=== PATIENT | male | born 1945 | race Caucasian/White ===

== ENCOUNTER 2017-09-28 13:43 | Emergency (ER) | payer MEDICARE, OTHER ==
[~2017-09-28] VITALS: Ht 172.7 cm; Wt 84.1 kg
[~2017-09-28 13:43] MED LIST: ATEN-100 PO; BAYE325T3 PO; CETI5TAB2 PO; CRAN425C2 PO; GLIP5 PO; LISI10TA PO; LORTA5 PO; METF1000 PO; MULTCAP14 PO; PROBCAP28; RIVA15 PO; RIVA20 PO; SAW500CA6 PO; SIMV10TA PO
[2017-09-28 13:44] VITALS: BP 190/89; PULSE 73; RESP 15; TEMP 98.1; O2SAT 97
[2017-09-28] MEDS ORDERED: IOHEXOL 350 MG/ML 10 ML VIAL (for RAD DIAG) IVCONTRAST ONE (13:44)
[2017-09-28 14:19] VITALS: BP 196/90
[2017-09-28] MEDS ORDERED: SODIUM CHLORIDE 0.9% FLUSH 10 ML FLUSH IV FLUSH PRN (14:45)
[2017-09-28 15:06] VITALS: O2SAT 98
[2017-09-28 15:15] LABS: AUTOMATED NEUTROPHIL # 9.4 TH/MM3 (1.8-7.7); BASOPHIL % 0.1 % (0.0-2.0); EOSINOPHIL # 0.2 TH/MM3 (0-0.4); EOSINOPHIL % 1.6 % (0.0-4.0); HEMATOCRIT 38.3 % (39.0-51.0); HEMOGLOBIN 12.9 GM/DL (13.0-17.0); LYMPH % 11.8 % (9.0-44.0); LYMPHOCYTE # 1.4 TH/MM3 (1.0-4.8); MEAN CELL VOLUME 93.7 FL (80.0-100.0); MEAN CORPUSCULAR HEMOGLOBIN 31.6 PG (27.0-34.0); MEAN CORPUSCULAR HGB CONC 33.7 % (32.0-36.0); MEAN PLATELET VOLUME 6.7 FL (7.0-11.0); MONO % 8.4 % (0.0-8.0); NEUT % 78.1 % (16.0-70.0); PLATELET COUNT 302 TH/MM3 (150-450); RED BLOOD COUNT 4.09 MIL/MM3 (4.50-5.90); RED CELL DISTRIBUTION WIDTH 13.4 % (11.6-17.2)
[2017-09-28] MEDS ORDERED: LANTUS2P SQ ×2 (15:16)
[2017-09-28] MEDS ORDERED: LISI40TA PO ×2 (15:16)
[2017-09-28] MEDS ORDERED: ALBI1INJ2 SQ ×2 (15:16)
[2017-09-28] MEDS ORDERED: METF1000 PO ×2 (15:16)
[2017-09-28] MEDS ORDERED: CARV6.252 PO ×2 (15:16)
[2017-09-28] MEDS ORDERED: SIMV10TA PO ×2 (15:16)
[2017-09-28 15:21] LABS: PROTHROMBIN TIME - PATIENT 10.1 SEC (9.8-11.6)
[2017-09-28 15:30] LABS: ALBUMIN 4.1 GM/DL (3.4-5.0); ALT (GPT) 26 U/L (12-78); AST (GOT) 22 U/L (15-37); BICARBONATE 30.4 MEQ/L (21.0-32.0); BLOOD UREA NITROGEN 22 MG/DL (7-18); CALCIUM 10.2 MG/DL (8.5-10.1); CHLORIDE 98 MEQ/L (98-107); CREATININE 1.29 MG/DL (0.60-1.30); GLOMERULAR FILTRATION RATE 54 ML/MIN (>89); GLUCOSE,RANDOM 174 MG/DL (74-106); LIPASE 158 U/L (73-393); SODIUM (NA) 135 MEQ/L (136-145)
[2017-09-28] MEDS ORDERED: SODIUM CHLORID 0.9% 500 ML INJ 500 ML IV ONE (15:30)
[2017-09-28] MEDS ORDERED: KETOROLAC TROMETHAMINE 30 MG/ML (IVP) VIAL IV PUSH ONE (15:30)
[2017-09-28] MEDS ORDERED: ONDANSETRON HCL 4 MG/2 ML VIAL IV PUSH ONE (15:30)
[2017-09-28 15:31] LABS: ALKALINE PHOSPHATASE 61 U/L (45-117); TOTAL BILIRUBIN ADULT 0.5 MG/DL (0.2-1.0); TOTAL PROTEIN 8.2 GM/DL (6.4-8.2)
--- NOTE | 2017-09-28 16:05 | PD ---
HPI Chief Complaint: Abdominal Pain Time Seen by Provider: 14:13 Travel History International Travel<30 days: No Contact w/Intl Traveler<30days: No Traveled to known affect area: No History of Present Illness HPI 72 year old male patient presents to the emergency department for right upper and lower quadrant abdominal pain that started last night. Patient states the pain is a steady ache that he rates at a 8/10 but there are intermittent sharp pains. The pain does not radiate anywhere. He denies any nausea, vomiting, diarrhea, chest pain or shortness of breath. He denies any fevers, chills or malaise. He states he bowel movements have been normal and he last had one this morning. It was the patient's usual brown in color. Denies any dark, tarry stools. Patient denies any alcohol abuse, smoking or drug use. Hx of diabetes, prostate CA, HTN, karlos PE and chronic back pain. Patient denies eating any unusual foods or drinks. Patient's only abdominal surgical history is umbilical hernia repair. PFSH Past Medical History Cancer: Yes (LIPOMA, NECK (REMOVED)) Cardiovascular Problems: Yes Chest Pain: Yes (HAD STRESS TEST (? RESULTS)) Diabetes: Yes Patient Takes Glucophage: Yes Diminished Hearing: No Hiatal Hernia: Yes (REPAIR W MESH) Hypertension: Yes Musculoskeletal: No Neurologic: No Reproductive: No Respiratory: Yes (TB) Tetanus Vaccination: < 5 Years ?: Not Past Surgical History Abdominal Surgery: Yes (umbilical hernia) Other Surgery: Yes (lipoma on right neck, cyst on left hand) Social History Alcohol Use: No Tobacco Use: No Substance Use: No Allergies-Medications (Allergen,Severity, Reaction): Coded Allergies: No Known Allergies (Unverified Adverse Reaction, Unknown, 09/28/17) Reported Meds & Prescriptions Reported Meds & Active Scripts Active Flagyl (Metronidazole) 500 Mg Tab 500 Mg PO TID 7 Days Reported Lantus Inj (Insulin Glargine) 1,000 Unit/10 Ml Vial 17 Units SQ HS Lisinopril 40 Mg Tab 40 Mg PO DAILY Simvastatin 10 Mg Tab 10 Mg PO DAILY Carvedilol 6.25 Mg Tab 6.25 Mg PO BID Metformin (Metformin HCl) 1,000 Mg Tab 1,000 Mg PO BIDPC Tanzeum 4-Pack Inj (Albiglutide) 50 Mg Pfpen 50 Mg SQ Q7D Review of Systems Except as stated in HPI: all other systems reviewed are Neg Gastrointestinal: Positive: Abdominal Pain Physical Exam Narrative GENERAL: Well nourish, well developed 72 year old male patient in no acute distress. Nontoxic appearing. SKIN: Focused skin assessment warm/dry. HEAD: Atraumatic. Normocephalic. EYES: Pupils equal and round. No scleral icterus. No injection or drainage. ENT: No nasal bleeding or discharge. Mucous membranes pink and moist. NECK: Trachea midline. No JVD. CARDIOVASCULAR: Regular rate and rhythm. No murmur appreciated. RESPIRATORY: No accessory muscle use. Clear to auscultation. Breath sounds equal bilaterally. GASTROINTESTINAL: Abdomen soft, right upper and lower quadrant tenderness, nondistended. No rebound tenderness. Hepatic and splenic margins not palpable. Umbilical hernia repair noted. MUSCULOSKELETAL: No obvious deformities. No clubbing. No cyanosis. No edema. NEUROLOGICAL: Awake and alert. No obvious cranial nerve deficits. Motor grossly within normal limits. Normal speech. PSYCHIATRIC: Appropriate mood and affect; insight and judgment normal. Data Data Last Documented VS Vital Signs Date Time Temp Pulse Resp B/P (MAP) Pulse Ox O2 Delivery O2 Flow Rate FiO2 09/28/17 16:46 66 17 207/90 (129) 99 Room Air 09/28/17 13:44 98.1 Orders Orders Complete Blood Count With Diff (09/28/17 14:39) Comprehensive Metabolic Panel (09/28/17 14:39) Lipase (09/28/17 14:39) Prothrombin Time / Inr (Pt) (09/28/17 14:39) Act Partial Throm Time (Ptt) (09/28/17 14:39) Urinalysis - C+S If Indicated (09/28/17 14:39) Ct Abd/Pel W Iv Contrast(Rout) (09/28/17 14:39) Iv Access Insert/Monitor (09/28/17 14:39) Ecg Monitoring (09/28/17 14:39) Oximetry (09/28/17 14:39) Sodium Chloride 0.9% Flush (Ns Flush) (09/28/17 14:45) Electrocardiogram (09/28/17 14:39) Sodium Chlorid 0.9% 500 Ml Inj (Ns 500 M (09/28/17 15:30) Ondansetron Inj (Zofran Inj) (09/28/17 15:30) Ketorolac Inj (Toradol Inj) (09/28/17 15:30) Iohexol 350 Inj (Omnipaque 350 Inj) (09/28/17 13:44) Ed Discharge Order (09/28/17 17:32) Labs Laboratory Tests Test 09/28/17 14:35 09/28/17 16:40 White Blood Count 12.0 TH/MM3 Red Blood Count 4.09 MIL/MM3 Hemoglobin 12.9 GM/DL Hematocrit 38.3 % Mean Corpuscular Volume 93.7 FL Mean Corpuscular Hemoglobin 31.6 PG Mean Corpuscular Hemoglobin Concent 33.7 % Red Cell Distribution Width 13.4 % Platelet Count 302 TH/MM3 Mean Platelet Volume 6.7 FL Neutrophils (%) (Auto) 78.1 % Lymphocytes (%) (Auto) 11.8 % Monocytes (%) (Auto) 8.4 % Eosinophils (%) (Auto) 1.6 % Basophils (%) (Auto) 0.1 % Neutrophils # (Auto) 9.4 TH/MM3 Lymphocytes # (Auto) 1.4 TH/MM3 Monocytes # (Auto) 1.0 TH/MM3 Eosinophils # (Auto) 0.2 TH/MM3 Basophils # (Auto) 0.0 TH/MM3 CBC Comment DIFF FINAL Differential Comment Prothrombin Time 10.1 SEC Prothromb Time International Ratio 1.0 RATIO Activated Partial Thromboplast Time 25.5 SEC Blood Urea Nitrogen 22 MG/DL Creatinine 1.29 MG/DL Random Glucose 174 MG/DL Total Protein 8.2 GM/DL Albumin 4.1 GM/DL Calcium Level 10.2 MG/DL Alkaline Phosphatase 61 U/L Aspartate Amino Transf (AST/SGOT) 22 U/L Alanine Aminotransferase (ALT/SGPT) 26 U/L Total Bilirubin 0.5 MG/DL Sodium Level 135 MEQ/L Potassium Level 3.6 MEQ/L Chloride Level 98 MEQ/L Carbon Dioxide Level 30.4 MEQ/L Anion Gap 7 MEQ/L Estimat Glomerular Filtration Rate 54 ML/MIN Lipase 158 U/L Urine Color YELLOW Urine Turbidity CLEAR Urine pH 8.0 Urine Specific [place] 1.038 Urine Protein TRACE mg/dL Urine Glucose (UA) 300 mg/dL Urine Ketones 80 mg/dL Urine Occult Blood NEG Urine Nitrite NEG Urine Bilirubin NEG Urine Urobilinogen LESS THAN 2.0 MG/DL Urine Leukocyte Esterase NEG Urine RBC LESS THAN 1 /hpf Urine WBC 1 /hpf Microscopic Urinalysis Comment CULT NOT INDICATED MDM Medical Decision Making Medical Screen Exam Complete: Yes Emergency Medical Condition: Yes Differential Diagnosis Differential diagnoses include but not limited to cholecystitis, appendicitis, gastritis, pancreatitis Narrative Course Patient placed on monitor, IV obtained, blood work sent to the lab. CBC, CMP, lipase, PT INR, UA ordered and pending. Abdominal CT ordered and pending. 500 mL normal saline bolus IV, 4 mg Zofran, 30 mg Toradol IV given. CBC shows mild leukocytosis of 12 CMP shows glucose 174, calcium 10.2, otherwise no acute abnormalities. PT/INR shows no acute abnormalities. UA shows glucose and ketones otherwise no acute abnormality. Abdominal CT shows right lower lung scar and/or infiltrates and numerous diverticuli in the colon. Patient has no shortness of breath or cough or fever. My attending, Dr Tinoco and I reviewed the CT and saw nonspecific inflammatory changes in the right lower quadrant. Patient will be given antibiotic per Dr Tinoco's suggestion. Based on patient's symptoms, clinical presentation, lab results, radiological results, vital sign review and physical exam it is not necessary to admit the patient to the hospital or keep the patient in the emergency department for further evaluation. Patient will be discharged home with prescription for Flagyl. Diagnosis Primary Impression: Abdominal pain Qualified Codes: R10.9 - Unspecified abdominal pain Referrals: Primary Care Physician Patient Instructions: Abdominal Pain (ED), General Instructions Additional Instructions: Please return to emergency department if your symptoms return or worsen. Follow up with your primary care provider. Take medications as prescribed. Med/Other Pt SpecificInfo: Prescription(s) given Scripts Metronidazole (Flagyl) 500 Mg Tab 500 MG PO TID for Infection for 7 Days, TAB 0 Refills Prov: LuanneHeather 09/28/17 Disposition: DISCHARGE HOME Condition: Stable Heather Stroud Sep 28, 2017 16:05
--- NOTE | 2017-09-28 16:20 | RADRPT ---
EXAM DATE/TIME: 09/28/2017 16:00 [facility] COMPARISON: No previous studies available for comparison. INDICATIONS : Patient complains of low abdominal pain. IV CONTRAST: 94 cc Omnipaque 350 (iohexol) IV ORAL CONTRAST: No oral contrast ingested. RADIATION DOSE: 13.04 CTDIvol (mGy) MEDICAL HISTORY : Cardiovascular disease. Diabetes mellitus type 1. neck cancer SURGICAL HISTORY : hiatal hernia repair ENCOUNTER: Initial ACUITY: 1 day PAIN SCALE: 5/10 LOCATION: lower quadrant TECHNIQUE: Volumetric scanning of the abdomen and pelvis was performed. Using automated exposure control and ad justment of the mA and/or kV according to patient size, radiation dose was kept as low as reasonably achievable to obtain optimal diagnostic quality images. DICOM format image data is available electro nically for review and comparison. FINDINGS: CT Abdomen: The liver, spleen, pancreas, kidneys, adrenals are unremarkable. There is no evidence for any appreciable pathological adenopathy, free fluid, or bowel obstruction. Right lung base anterola teral opacity is present measures almost 1.9 cm in size may be infiltrate and/or scar. CT pelvis: There is no evidence for mass, abscess formation, or any significant adenopathy within the pelvis. The prostate gland is inhomogeneous and measures 4.2 x 4.8 cm in AP and transverse diameters and nonspecific. There are numerous diverticuli mainly in the sigmoid colon without definite signs o f diverticulitis. CONCLUSION: Right lower lung scar and/or infiltrate and numerous diverticuli in the colon. Raza Yeh MD on September 28, 2017 at 16:12 Board Certified Radiologist. This report was verified electronically.
[2017-09-28 16:46] VITALS: BP 207/90; PULSE 66; RESP 17; O2SAT 99
[2017-09-28 17:20] LABS: BILIRUBIN, URINE NEG (NEG); BLOOD, URINE NEG (NEG); GLUCOSE,URINE 300 mg/dL (NEG); KETONE, URINE 80 mg/dL (NEG); NITRITE,URINE NEG (NEG); URINE COLOR YELLOW (YELLW/STRAW); URINE LEUKOCYTE ESTERASE NEG (NEG)
[2017-09-28] MEDS ORDERED: METR-1 PO (17:32)
--- NOTE | 2017-09-29 12:32 | EKG ---
Date Performed: 09/28/2017 Time Performed: 14:14:51 PTAGE: 72 years EKG: Sinus rhythm INFERIOR MYOCARDIAL INFARCTION ABNORMAL ECG PREVIOUS TRACING : 10/30/2013 22.40 DOCTOR: David Wilson Interpretating Date/Time 09/29/2017 12:31:40
== END 2017-09-28 19:05 | disposition home or self-care (01) ==
LOC: NEPE 13:43
DX: R10.31 Right lower quadrant pain (principal); R10.11 Right upper quadrant pain; I10 Essential (primary) hypertension; E11.9 Type 2 diabetes mellitus without complications; M54.9 Dorsalgia, unspecified; R94.31 Abnormal electrocardiogram [ECG] [EKG]
CPT/HCPCS: 74177; 80053; 81001; 83690; 85025; 85610; 85730; 93005; 96361; 96374; 96375; 99285; J1885; J2405; J7040; Q9967

== ENCOUNTER 2017-10-01 11:12 | Inpatient (IN) | payer MEDICARE, OTHER ==
[~2017-10-01] VITALS: Ht 172.7 cm; Wt 83.5 kg
[~2017-10-01 11:12] MED LIST changes: +ALBI1INJ2 SQ; +CARV6.252 PO; +LANTUS2P SQ; +LISI40TA PO; +METR-1 PO
[2017-10-01 11:13] VITALS: BP 128/68; PULSE 92; RESP 18; TEMP 98; O2SAT 95
[2017-10-01] MEDS ORDERED: HYDR12.57 PO ×2 (11:39)
[2017-10-01] MEDS ORDERED: LIDOCAINE HCL 1% PF 5 ML SYRINGE OTHER ONE (12:00)
[2017-10-01] MEDS ORDERED: SUCCINYLCHOLINE CHLORIDE 100 MG/5 ML SYRINGE IV PUSH ONE (12:00)
[2017-10-01] MEDS ORDERED: MORPHINE SULFATE 2 MG/ML INJ IV PUSH ONE (12:00)
[2017-10-01] MEDS ORDERED: PROPOFOL 200 MG/20 ML AMP IV ONE (12:00)
[2017-10-01] MEDS ORDERED: PHENYLEPH/NS 1000 MCG/10 ML SYR IV ONE (12:00)
[2017-10-01] MEDS ORDERED: ONDANSETRON HCL 4 MG/2 ML VIAL IV ONE (12:00)
[2017-10-01] MEDS ORDERED: ROCURONIUM INJ 50 MG/5 ML VIAL IV ONE (12:00)
[2017-10-01] MEDS ORDERED: LACTATED RINGER'S 1000 ML INJ 1,000 ML IV ONE (12:00)
[2017-10-01] MEDS ORDERED: DEXAMETHASONE SOD PHOS 4 MG/ML VIAL IV ONE (12:00)
[2017-10-01] MEDS ORDERED: ONDANSETRON HCL 4 MG/2 ML VIAL IVP ONE (12:00)
--- NOTE | 2017-10-01 12:26 | RADRPT ---
EXAM DATE/TIME: 10/01/2017 12:01 [facility] COMPARISON: No previous studies available for comparison. INDICATIONS : Lower chest pain. MEDICAL HISTORY : Cardiovascular disease. Diabetes mellitus type I. neck cancer SURGICAL HISTORY : hiatal hernia ENCOUNTER: Initial ACUITY: 1 day PAIN SCORE: 4/10 LOCATION: Bilateral chest FINDINGS: A single view of the chest demonstrates the lungs to be symmetrically aerated without evidence of mas s, infiltrate or effusion. The cardiomediastinal contours are unremarkable. Osseous structures are intact. CONCLUSION: No acute disease. Jeremiah Celeste MD FACR on October 01, 2017 at 12:23 Board Certified Radiologist. This report was verified electronically.
[2017-10-01 12:27] LABS: AUTOMATED NEUTROPHIL # 6.4 TH/MM3 (1.8-7.7); EOSINOPHIL # 0.3 TH/MM3 (0-0.4); EOSINOPHIL % 4.6 % (0.0-4.0); HEMATOCRIT 37.3 % (39.0-51.0); HEMOGLOBIN 12.5 GM/DL (13.0-17.0); LYMPH % 5.6 % (9.0-44.0); LYMPHOCYTE # 0.4 TH/MM3 (1.0-4.8); MEAN CELL VOLUME 93.9 FL (80.0-100.0); MEAN CORPUSCULAR HEMOGLOBIN 31.4 PG (27.0-34.0); MEAN CORPUSCULAR HGB CONC 33.5 % (32.0-36.0); MEAN PLATELET VOLUME 7.2 FL (7.0-11.0); MONO % 4.8 % (0.0-8.0); MONOCYTE # 0.4 TH/MM3 (0-0.9); PLATELET COUNT 275 TH/MM3 (150-450); RED BLOOD COUNT 3.98 MIL/MM3 (4.50-5.90); RED CELL DISTRIBUTION WIDTH 13.9 % (11.6-17.2); WHITE BLOOD COUNT 7.5 TH/MM3 (4.0-11.0)
--- NOTE | 2017-10-01 12:28 | PD ---
HPI Chief Complaint: Abdominal Pain Time Seen by Provider: 11:38 Travel History International Travel<30 days: No Contact w/Intl Traveler<30days: No Traveled to known affect area: No History of Present Illness HPI 72-year-old male that presents to the ED for evaluation of abdominal pain. Per patient is mainly on the right side. Radiates to the lower abdomen like a band. Sometimes to the back of the right side. Patient has no history of recent surgeries but was seen here on Wednesday for evaluation of the same. Patient had a full workup and was diagnosed with diverticulitis. He was found/ body symptoms have not improved. Per patient he still continues to have pain. Per patient the pain is 7 out of 10. Coughing makes it worse. He denies any runny nose or congestion. He states that his been compliant with the medication but has had minimal relief. His been taking Tylenol for the pain with minimal relief. He is having some diarrhea but no blood or dark stools. No fevers chills or sweats. No sick contacts. No new foods. No recent travel. No allergies to medication. He states he has not vomited. His appetite has been diminished. He denies any urinary symptoms. He has not seen his doctor since been seen at this ED. PFSH Past Medical History Cancer: Yes (LIPOMA, NECK (REMOVED)) Cardiovascular Problems: Yes Chest Pain: Yes (HAD STRESS TEST (? RESULTS)) Diabetes: Yes Patient Takes Glucophage: No Diminished Hearing: No Hiatal Hernia: Yes (REPAIR W MESH) Hypertension: Yes Musculoskeletal: No Neurologic: No Reproductive: No Respiratory: Yes (TB) Past Surgical History Abdominal Surgery: Yes (umbilical hernia) Other Surgery: Yes (lipoma on right neck, cyst on left hand) Social History Alcohol Use: No Tobacco Use: No Substance Use: No Allergies-Medications (Allergen,Severity, Reaction): Coded Allergies: No Known Allergies (Unverified Allergy, Unknown, 10/01/17) Reported Meds & Prescriptions Reported Meds & Active Scripts Active Flagyl (Metronidazole) 500 Mg Tab 500 Mg PO TID 7 Days Reported Hydrochlorothiazide 12.5 Mg Cap 12.5 Mg PO BID Lantus Inj (Insulin Glargine) 1,000 Unit/10 Ml Vial 17 Units SQ HS Lisinopril 40 Mg Tab 40 Mg PO DAILY Simvastatin 10 Mg Tab 10 Mg PO DAILY Carvedilol 6.25 Mg Tab 6.25 Mg PO BID Metformin (Metformin HCl) 1,000 Mg Tab 1,000 Mg PO BIDPC Tanzeum 4-Pack Inj (Albiglutide) 50 Mg Pfpen 50 Mg SQ Q7D Review of Systems Except as stated in HPI: all other systems reviewed are Neg Physical Exam Narrative GENERAL: SKIN: Warm and dry. HEAD: Atraumatic. Normocephalic. EYES: Pupils equal and round. No scleral icterus. No injection or drainage. ENT: No nasal bleeding or discharge. Mucous membranes pink and moist. Tongue is midline. No uvula deviation. NECK: Trachea midline. No JVD. CARDIOVASCULAR: Regular rate and rhythm. No murmurs, S3, S4. RESPIRATORY: No accessory muscle use. Clear to auscultation. Breath sounds equal bilaterally. GASTROINTESTINAL: Abdomen soft, tender to palpation the right upper and right lower quadrant of the abdomen especially with deep palpation, nondistended. Hepatic and splenic margins not palpable. MUSCULOSKELETAL: Extremities without clubbing, cyanosis, or edema. No obvious deformities. Full range of motion of the upper and lower extremities bilaterally. 2+ pulses bilaterally. NEUROLOGICAL: Awake and alert. No obvious cranial nerve deficits. Motor grossly within normal limits. Five out of 5 muscle strength in the arms and legs. Normal speech. PSYCHIATRIC: Appropriate mood and affect; insight and judgment normal. Data Data Last Documented VS Vital Signs Date Time Temp Pulse Resp B/P (MAP) Pulse Ox O2 Delivery O2 Flow Rate FiO2 10/01/17 14:16 85 17 143/68 (93) 97 Room Air 10/01/17 11:13 98.0 Orders Orders Complete Blood Count With Diff (10/01/17 11:22) Comprehensive Metabolic Panel (10/01/17 11:22) Lipase (10/01/17 11:22) Lactic Acid (10/01/17 11:22) Urinalysis - C+S If Indicated (10/01/17 11:22) Iv Access Insert/Monitor (10/01/17 11:22) Ct Abd/Pel W Iv Contrast(Rout) (10/01/17 11:48) Ondansetron Inj (Zofran Inj) (10/01/17 12:00) Chest, Single Ap (10/01/17 11:48) Morphine Inj (Morphine Inj) (10/01/17 12:00) Stool Ova And Parasite Screen (10/01/17 11:50) Enteric Path (Stool) (10/01/17 11:50) Sodium Chlor 0.9% 1000 Ml Inj (Ns 1000 M (10/01/17 13:00) Urine Culture (10/01/17 12:05) Iohexol 350 Inj (Omnipaque 350 Inj) (10/01/17 13:18) Piperacil-Tazo 3.375 Gm Premix (Zosyn 3. (10/01/17 14:00) Coag Profile (10/01/17 14:40) Blood Glucose (10/01/17 14:41) Admit Order (Ed Use Only) (10/01/17 15:01) Labs Laboratory Tests Test 10/01/17 11:50 10/01/17 12:05 10/01/17 12:56 White Blood Count 7.5 TH/MM3 Red Blood Count 3.98 MIL/MM3 Hemoglobin 12.5 GM/DL Hematocrit 37.3 % Mean Corpuscular Volume 93.9 FL Mean Corpuscular Hemoglobin 31.4 PG Mean Corpuscular Hemoglobin Concent 33.5 % Red Cell Distribution Width 13.9 % Platelet Count 275 TH/MM3 Mean Platelet Volume 7.2 FL Neutrophils (%) (Auto) 85.0 % Lymphocytes (%) (Auto) 5.6 % Monocytes (%) (Auto) 4.8 % Eosinophils (%) (Auto) 4.6 % Basophils (%) (Auto) 0.0 % Neutrophils # (Auto) 6.4 TH/MM3 Lymphocytes # (Auto) 0.4 TH/MM3 Monocytes # (Auto) 0.4 TH/MM3 Eosinophils # (Auto) 0.3 TH/MM3 Basophils # (Auto) 0.0 TH/MM3 CBC Comment AUTO DIFF Differential Total Cells Counted 100 Neutrophils % (Manual) 62 % Band Neutrophils % 20 % Lymphocytes % 7 % Monocytes % 6 % Eosinophils % 2 % Neutrophils # (Manual) 6.4 TH/MM3 Metamyelocytes 3 % Differential Comment FINAL DIFF MANUAL Toxic Granulation 1+ Platelet Estimate NORMAL Platelet Morphology Comment NORMAL Red Cell Morphology Comment NORMAL Blood Urea Nitrogen 25 MG/DL Creatinine 1.55 MG/DL Random Glucose 200 MG/DL Total Protein 7.0 GM/DL Albumin 2.7 GM/DL Calcium Level 9.1 MG/DL Alkaline Phosphatase 39 U/L Aspartate Amino Transf (AST/SGOT) 6 U/L Alanine Aminotransferase (ALT/SGPT) 16 U/L Total Bilirubin 0.5 MG/DL Sodium Level 132 MEQ/L Potassium Level 3.8 MEQ/L Chloride Level 96 MEQ/L Carbon Dioxide Level 28.2 MEQ/L Anion Gap 8 MEQ/L Estimat Glomerular Filtration Rate 44 ML/MIN Lactic Acid Level 1.7 mmol/L Lipase 99 U/L Urine Color LIGHT-RED Urine Turbidity HAZY Urine pH 5.5 Urine Specific [place] 1.017 Urine Protein 100 mg/dL Urine Glucose (UA) NEG mg/dL Urine Ketones TRACE mg/dL Urine Occult Blood TRACE Urine Nitrite NEG Urine Bilirubin NEG Urine Urobilinogen LESS THAN 2.0 MG/DL Urine Leukocyte Esterase TRACE Urine RBC 2 /hpf Urine WBC 19 /hpf Urine Squamous Epithelial Cells 1 /hpf Urine Amorphous Sediment OCC Urine Bacteria RARE /hpf Urine Hyaline Casts 3 /lpf Urine Granular Casts 4 /lpf Urine Mucus FEW /lpf Microscopic Urinalysis Comment CULTURE INDICATED Prothrombin Time 11.0 SEC Prothromb Time International Ratio 1.1 RATIO Activated Partial Thromboplast Time 30.3 SEC MDM Medical Decision Making Medical Screen Exam Complete: Yes Emergency Medical Condition: Yes Medical Record Reviewed: Yes Interpretation(s) CBC & BMP Diagram 10/01/17 11:50 Total Protein 7.0 #, Albumin 2.7 L, Calcium Level 9.1, Alkaline Phosphatase 39 L , Aspartate Amino Transf (AST/SGOT) 6 L, Alanine Aminotransferase (ALT/SGPT) 16 , Total Bilirubin 0.5 Last Impressions Chest X-Ray 10/01/17 1148 Signed Impressions: Service Date/Time: Sunday, October 01, 2017 12:01 - CONCLUSION: No acute disease. Jeremiah Celeste MD FACR Abdomen/Pelvis CT 10/01/17 1148 Signed Impressions: Service Date/Time: Sunday, October 01, 2017 13:10 - CONCLUSION: Marked inflammatory changes right lower quadrant with small amount of free air. No defined abscess. Considerations include both diverticulitis and appendicitis. I would favor appendicitis., Series 601 image 51 Jeremiah Celeste MD FACR lipase WNL UA shows possible UTI Differential Diagnosis Abdominal pain versus diverticulitis versus gastroenteritis versus acute abdomen versus pancreatitis versus obstruction Narrative Course 72-year-old male that presents to the ED for violation of abdominal pain. Patient was properly examined and was found to have signs and symptoms consistent with appears to be abdominal pain. Possible diverticulitis. Patient he had a lumbosacral found but CT report did not found diverticulitis per se but he had some inflammation in the area where he had the symptoms. Questionable whether something else might be going on. Patient still very tender on exam. Labs and imaging were ordered. Labs and imaging chem positive for what appears to be possible appendicitis versus perforated diverticula. Case discussed in my attending Dr. Danielson who was made aware of findings and spoke with Dr. Renteria in person who wanted to have the patient admitted to medicine and patient to go to the or after he spoke with the patient for need for surgery for further evaluation. Case was discussed with the residents who agree to admission Diagnosis Primary Impression: Appendicitis with perforation Admitting Information Admitting Physician Requests: it Richard Cardoza Oct 01, 2017 12:28
[2017-10-01 12:50] LABS: ALBUMIN 2.7 GM/DL (3.4-5.0); ALKALINE PHOSPHATASE 39 U/L (45-117); ALT (GPT) 16 U/L (12-78); AST (GOT) 6 U/L (15-37); BICARBONATE 28.2 MEQ/L (21.0-32.0); BLOOD UREA NITROGEN 25 MG/DL (7-18); CALCIUM 9.1 MG/DL (8.5-10.1); CHLORIDE 96 MEQ/L (98-107); CREATININE 1.55 MG/DL (0.60-1.30); GLOMERULAR FILTRATION RATE 44 ML/MIN (>89); GLUCOSE,RANDOM 200 MG/DL (74-106); LIPASE 99 U/L (73-393); SODIUM (NA) 132 MEQ/L (136-145); TOTAL BILIRUBIN ADULT 0.5 MG/DL (0.2-1.0)
[2017-10-01 12:51] LABS: AMORPHOUS SEDIMENT, URINE OCC; BACTERIA, URINE RARE /hpf; BILIRUBIN, URINE NEG (NEG); BLOOD, URINE TRACE (NEG); GLUCOSE,URINE NEG (NEG); HYALINE CAST, URINE 3 /lpf (RARE); KETONE, URINE TRACE mg/dL (NEG); MUCUS URINE FEW /lpf (OCC); NITRITE,URINE NEG (NEG); PH, URINE 5.5 (5.0-8.5); SQUAMOUS EPITHELIAL CELL URINE 1 /hpf (0-5); URINE LEUKOCYTE ESTERASE TRACE (NEG)
[2017-10-01 12:52] LABS: URINE COLOR LIGHT-RED (YELLW/STRAW)
[2017-10-01] MEDS ORDERED: SODIUM CHLOR 0.9% 1000 ML INJ 1,000 ML IV ONE (13:00)
[2017-10-01 13:04] LABS: BANDS 20 % (0-6); LYMPHOCYTES 7 % (9-44); METAMYELOCYTES 3 % (0-1); MONOCYTES 6 % (0-8); NEUTROPHIL # MANUAL DIFF 6.4 TH/MM3 (1.8-7.7); POLYS (SEG NEUTROPHILS) 62 % (16-70)
[2017-10-01 13:05] LABS: TOXIC GRANULATION 1+ (NORMAL)
[2017-10-01] MEDS ORDERED: IOHEXOL 350 MG/ML 10 ML VIAL (for RAD DIAG) IVCONTRAST ONE (13:18)
--- NOTE | 2017-10-01 13:52 | RADRPT ---
EXAM DATE/TIME: 10/01/2017 13:10 [facility] COMPARISON: CT ABDOMEN & PELVIS W CONTRAST, September 28, 2017, 16:00. INDICATIONS : Lower abdominal pain. IV CONTRAST: 92 cc Omnipaque 350 (iohexol) IV ORAL CONTRAST: No oral contrast ingested. RADIATION DOSE: 10.58 CTDIvol (mGy) MEDICAL HISTORY : Hypertension. Diabetes mellitus type 2. Hernia, umbilical.Neck cancer. SURGICAL HISTORY : Hiatal hernia repair. ENCOUNTER: Initial ACUITY: 1 day PAIN SCALE: 4/10 LOCATION: lower abdomen TECHNIQUE: Volumetric scanning of the abdomen and pelvis was performed. Using automated exposure control and ad justment of the mA and/or kV according to patient size, radiation dose was kept as low as reasonably achievable to obtain optimal diagnostic quality images. DICOM format image data is available electro nically for review and comparison. FINDINGS: LOWER LUNGS Minimal bibasilar peribronchial thickening. The liver, spleen, pancreas and adrenals are unremarkable Symmetrical renal function without stone No ascites or adenopathy The marked inflammatory changes in the right lower quadrant associated with the descending colon and cecum. \ Considerations would include both appendicitis and diverticulitis. . Small amount of free air is present adjacent to the colon. In the pelvis extensive diverticuli are seen without inflammatory changes. CONCLUSION: Marked inflammatory changes right lower quadrant with small amount of free air. No d efined abscess. Considerations include both diverticulitis and appendicitis. I would favor appendicitis., Series 601 image 51 Jeremiah Celeste MD FACR on October 01, 2017 at 13:44 Board Certified Radiologist. This report was verified electronically.
[2017-10-01] MEDS ORDERED: PIPERACIL-TAZO 3.375 GM PREMIX 50 ML IV ONE (14:00)
--- NOTE | 2017-10-01 14:09 | PD ---
Physical Exam Narrative I, Dr. Danielson, have reviewed the advance practice practitioner's documentation and am in agreement, met with the patient face to face, made the diagnosis, and the medical decision making was done by me. *My assessment and Findings: Diverticulitis vs. appendicitis vs. nephrolithiasis 72yo M with PMH of HTN, DM presents to the ED with c/o right lower abdominal pain for 1 week. Pt was seen here on 09/28/16 but pain has gotten worst. Associated with nausea, nonbloody diarrhea and chills. +Decreased appetite. Last meal 7:30am. Denies any fever, chest pain, sob. CXR negative. CT a/p showed marked inflammatory changes right lower quadrant with small amount of free air. No defined abscess. Considerations both diverticulitis and appendicitis. Radiologist would favor appendicitis. Labs reviewed, no leukocytosis. Bandemia elevated at 20%. Lactic acid normal at 1.7. Glucose elevated at 200 but no increased anion gap. BUN/creatinine mildly increased at 25/1.55. LFTs low. UA showed wbc 19. Culture indicated. Pt has been covered with zosyn IV and NS IVF. Pt reevaluated at bedside after morphine and pain has improved. Still very tender in RLQ > RUQ. +Guarding. Discussed with general surgeon Dr. Renteria who came to evaluate the patient in the ED. He wanted the patient admitted to medicine and will take the pt to the OR now. Discussed with resident physicians and pt accepted to their service. Data Data Last Documented VS Vital Signs Date Time Temp Pulse Resp B/P (MAP) Pulse Ox O2 Delivery O2 Flow Rate FiO2 10/01/17 14:16 85 17 143/68 (93) 97 Room Air 10/01/17 11:13 98.0 Orders Orders Complete Blood Count With Diff (10/01/17 11:22) Comprehensive Metabolic Panel (10/01/17 11:22) Lipase (10/01/17 11:22) Lactic Acid (10/01/17 11:22) Urinalysis - C+S If Indicated (10/01/17 11:22) Iv Access Insert/Monitor (10/01/17 11:22) Ct Abd/Pel W Iv Contrast(Rout) (10/01/17 11:48) Ondansetron Inj (Zofran Inj) (10/01/17 12:00) Chest, Single Ap (10/01/17 11:48) Morphine Inj (Morphine Inj) (10/01/17 12:00) Stool Ova And Parasite Screen (10/01/17 11:50) Enteric Path (Stool) (10/01/17 11:50) Sodium Chlor 0.9% 1000 Ml Inj (Ns 1000 M (10/01/17 13:00) Urine Culture (10/01/17 12:05) Iohexol 350 Inj (Omnipaque 350 Inj) (10/01/17 13:18) Piperacil-Tazo 3.375 Gm Premix (Zosyn 3. (10/01/17 14:00) Coag Profile (10/01/17 14:40) Blood Glucose (10/01/17 14:41) Admit Order (Ed Use Only) (10/01/17 15:01) Labs Laboratory Tests Test 10/01/17 11:50 10/01/17 12:05 10/01/17 12:56 White Blood Count 7.5 TH/MM3 Red Blood Count 3.98 MIL/MM3 Hemoglobin 12.5 GM/DL Hematocrit 37.3 % Mean Corpuscular Volume 93.9 FL Mean Corpuscular Hemoglobin 31.4 PG Mean Corpuscular Hemoglobin Concent 33.5 % Red Cell Distribution Width 13.9 % Platelet Count 275 TH/MM3 Mean Platelet Volume 7.2 FL Neutrophils (%) (Auto) 85.0 % Lymphocytes (%) (Auto) 5.6 % Monocytes (%) (Auto) 4.8 % Eosinophils (%) (Auto) 4.6 % Basophils (%) (Auto) 0.0 % Neutrophils # (Auto) 6.4 TH/MM3 Lymphocytes # (Auto) 0.4 TH/MM3 Monocytes # (Auto) 0.4 TH/MM3 Eosinophils # (Auto) 0.3 TH/MM3 Basophils # (Auto) 0.0 TH/MM3 CBC Comment AUTO DIFF Differential Total Cells Counted 100 Neutrophils % (Manual) 62 % Band Neutrophils % 20 % Lymphocytes % 7 % Monocytes % 6 % Eosinophils % 2 % Neutrophils # (Manual) 6.4 TH/MM3 Metamyelocytes 3 % Differential Comment FINAL DIFF MANUAL Toxic Granulation 1+ Platelet Estimate NORMAL Platelet Morphology Comment NORMAL Red Cell Morphology Comment NORMAL Blood Urea Nitrogen 25 MG/DL Creatinine 1.55 MG/DL Random Glucose 200 MG/DL Total Protein 7.0 GM/DL Albumin 2.7 GM/DL Calcium Level 9.1 MG/DL Alkaline Phosphatase 39 U/L Aspartate Amino Transf (AST/SGOT) 6 U/L Alanine Aminotransferase (ALT/SGPT) 16 U/L Total Bilirubin 0.5 MG/DL Sodium Level 132 MEQ/L Potassium Level 3.8 MEQ/L Chloride Level 96 MEQ/L Carbon Dioxide Level 28.2 MEQ/L Anion Gap 8 MEQ/L Estimat Glomerular Filtration Rate 44 ML/MIN Lactic Acid Level 1.7 mmol/L Lipase 99 U/L Urine Color LIGHT-RED Urine Turbidity HAZY Urine pH 5.5 Urine Specific [place] 1.017 Urine Protein 100 mg/dL Urine Glucose (UA) NEG mg/dL Urine Ketones TRACE mg/dL Urine Occult Blood TRACE Urine Nitrite NEG Urine Bilirubin NEG Urine Urobilinogen LESS THAN 2.0 MG/DL Urine Leukocyte Esterase TRACE Urine RBC 2 /hpf Urine WBC 19 /hpf Urine Squamous Epithelial Cells 1 /hpf Urine Amorphous Sediment OCC Urine Bacteria RARE /hpf Urine Hyaline Casts 3 /lpf Urine Granular Casts 4 /lpf Urine Mucus FEW /lpf Microscopic Urinalysis Comment CULTURE INDICATED Prothrombin Time 11.0 SEC Prothromb Time International Ratio 1.1 RATIO Activated Partial Thromboplast Time 30.3 SEC [facility] Supervised Visit with CHIN: Yes Diagnosis Primary Impression: Appendicitis with perforation Admitting Information Admitting Physician Requests: it Estephania Danielson DO Oct 01, 2017 14:09
[2017-10-01 14:16] VITALS: BP 143/68; PULSE 85; RESP 17; O2SAT 97
--- NOTE | 2017-10-01 15:15 | HHI.HP ---
HPI Service Family Medicine Primary Care Physician No Primary Care Physician Admission Diagnosis Acute appendicitis Diagnoses: Chief Complaint: RLQ abdominal pain since Wednesday. International Travel<30 Days: No Contact w/Intl Traveler<30days: No Known Affected Area: No History of Present Illness History limited due to time (patient being rushed emergently to OR for surgery) . History obtained from patient, ER physician, and chart review. Briefly, Mr. Molina is a 72 yo M with h/o DM, hyperlipidemia, hypertension, and PE in 2013 who presented to the ED with acute abdominal pain since Wednesday that has since worsened which is his main reason for presentation today. He states that the pain is diffuse over the right side of his abdomen but is locally exquisitely tender in his RLQ. He also reports that he has R shoulder pain that appeared around the same time of his abdominal pain. He did not have any fever or vomiting, but reported some nausea immediately prior to ED arrival. Review of Systems ROS Limitations: Clinical Condition (patient being rushed to surgery emergently.) Constitutional: DENIES: Diaphoretic episodes, Fatigue, Fever, Weight gain, Weight loss, Chills, Dizziness, Change in appetite, Night Sweats Respiratory: DENIES: Wheezing, Shortness of breath Cardiovascular: DENIES: Chest pain, Palpitations Gastrointestinal: COMPLAINS OF: Abdominal pain, Nausea Musculoskeletal: COMPLAINS OF: Muscle aches (R shoulder pain starting around the time of abdominal pain.) Past Family Social History Past Medical History Past Medical History Hypertension, DM Type II, Osteoarthritis, History of a left upper lobe tuberculum, but no history of active TB. Past Surgical History umbilical hernia repair; removal of lipoma of right side of neck; finger surgery x 2 (sebaceous cysts removal) Allergies: Coded Allergies: No Known Allergies (Unverified Allergy, Unknown, 10/01/17) Family History Mother - from heart failure Father - from duodenal cancer Social History Tobacco: Former cigar smoker Alcohol: Occasional consumption of Scotch Illicit Drugs: Denies Physical Exam Vital Signs Vital Signs Date Time Temp Pulse Resp B/P (MAP) Pulse Ox O2 Delivery O2 Flow Rate FiO2 10/01/17 14:16 85 17 143/68 (93) 97 Room Air 10/01/17 11:13 98.0 92 18 128/68 (88) 95 Room Air Physical Exam GENERAL: well nourished, well developed, mild distress laying in bed, able to move about and prepare for surgery. SKIN: No rashes, ecchymoses or lesions. Cool and dry. HEAD: Atraumatic. Normocephalic. EYES: Pupils equal round and reactive. Extraocular motions intact. No scleral icterus. No injection or drainage. ENT: Nose without bleeding, purulent drainage or septal hematoma. Throat without erythema, tonsillar hypertrophy or exudate. Uvula midline. Airway patent. CARDIOVASCULAR: RRR no rubs, gallops, or murmurs appreciated. equal pulses bilaterally. RESPIRATORY: CTA bilaterally, breath sounds equal bilaterally. no rales, rhonchi , or wheezes heard. GASTROINTESTINAL: Abdomen soft, exquisitely tender to deep palpation of RLQ. no rebound. normoactive bowel sounds throughout. MSK: no edema of bilateral lower extremities. NEUROLOGICAL: Awake and alert. grossly nonfocal. able to respond and move about the room when prompted. Laboratory Laboratory Tests Test 10/01/17 11:50 10/01/17 12:05 10/01/17 12:56 White Blood Count 7.5 Red Blood Count 3.98 Hemoglobin 12.5 Hematocrit 37.3 Mean Corpuscular Volume 93.9 Mean Corpuscular Hemoglobin 31.4 Mean Corpuscular Hemoglobin Concent 33.5 Red Cell Distribution Width 13.9 Platelet Count 275 Mean Platelet Volume 7.2 Neutrophils (%) (Auto) 85.0 Lymphocytes (%) (Auto) 5.6 Monocytes (%) (Auto) 4.8 Eosinophils (%) (Auto) 4.6 Basophils (%) (Auto) 0.0 Neutrophils # (Auto) 6.4 Lymphocytes # (Auto) 0.4 Monocytes # (Auto) 0.4 Eosinophils # (Auto) 0.3 Basophils # (Auto) 0.0 CBC Comment AUTO DIFF Differential Total Cells Counted 100 Neutrophils % (Manual) 62 Band Neutrophils % 20 Lymphocytes % 7 Monocytes % 6 Eosinophils % 2 Neutrophils # (Manual) 6.4 Metamyelocytes 3 Differential Comment FINAL DIFF MANUAL Toxic Granulation 1+ Platelet Estimate NORMAL Platelet Morphology Comment NORMAL Red Cell Morphology Comment NORMAL Blood Urea Nitrogen 25 Creatinine 1.55 Random Glucose 200 Total Protein 7.0 Albumin 2.7 Calcium Level 9.1 Alkaline Phosphatase 39 Aspartate Amino Transf (AST/SGOT) 6 Alanine Aminotransferase (ALT/SGPT) 16 Total Bilirubin 0.5 Sodium Level 132 Potassium Level 3.8 Chloride Level 96 Carbon Dioxide Level 28.2 Anion Gap 8 Estimat Glomerular Filtration Rate 44 Lactic Acid Level 1.7 Lipase 99 Urine Color LIGHT-RED Urine Turbidity HAZY Urine pH 5.5 Urine Specific [place] 1.017 Urine Protein 100 Urine Glucose (UA) NEG Urine Ketones TRACE Urine Occult Blood TRACE Urine Nitrite NEG Urine Bilirubin NEG Urine Urobilinogen LESS THAN 2.0 Urine Leukocyte Esterase TRACE Urine RBC 2 Urine WBC 19 Urine Squamous Epithelial Cells 1 Urine Amorphous Sediment OCC Urine Bacteria RARE Urine Hyaline Casts 3 Urine Granular Casts 4 Urine Mucus FEW Microscopic Urinalysis Comment CULTURE INDICATED Date/Time Source Procedure Growth Status 10/01/17 12:05 Stool Stool Cryptosporidium Exam Pending Received 10/01/17 12:05 Stool Stool Giardia Antigen (HA) Pending Received 10/01/17 12:05 Urine Clean Catch Urine Culture Pending Received Result Diagram: 10/01/17 1150 10/01/17 1150 Imaging Last Impressions Chest X-Ray 10/01/17 1148 Signed Impressions: Service Date/Time: Sunday, October 01, 2017 12:01 - CONCLUSION: No acute disease. Jeremiah Celeste MD FACR Abdomen/Pelvis CT 10/01/17 1148 Signed Impressions: Service Date/Time: Sunday, October 01, 2017 13:10 - CONCLUSION: Marked inflammatory changes right lower quadrant with small amount of free air. No defined abscess. Considerations include both diverticulitis and appendicitis. I would favor appendicitis., Series 601 image 51 Jeremiah Celeste MD FACR Caprini VTE Risk Assessment Caprini VTE Risk Assessment: Mod/High Risk (score >= 2) Assessment and Plan Assessment and Plan Mr. Molina is a 72 yo M who presents emergently for acute abdominal pain: Problem List: (1) Appendicitis with perforation ICD Codes: K35.2 - Acute appendicitis with generalized peritonitis Status: Acute Plan: CT findings highly suggestive of acute appendicitis with perforation ( see above) Hemodynamically stable No leukocytosis - Consult gen surg, appreciate assistance' - To OR for emergent surgery - Zosyn 3.375 Q6H for PPx - NPO; IV hydration - Zofran for nausea - Trend CBC, BMP - Pain management to be determined after surgery (2) DM type 2 (diabetes mellitus, type 2) ICD Codes: E11.9 - DM type 2 (diabetes mellitus, type 2) Status: Chronic Plan: BSG on admission 200 - Hold home metformin, GLP-1 modifier - Levemir 8U SQ Q12H - Novolog SSI - Accucheks AC&HS (3) Hypertension ICD Codes: I10 - Hypertension Status: Chronic Plan: telemetry, continue home meds. (4) FEN/PPX Plan: Fluids: NS @ 100 cc/hr Elecs: Monitor and replete PRN Nutrition: NPO pending surgery DVT: SCD bilateral legs; holding heparin in anticipation of surgery Constipation protocol in place CODE STATUS: Full code sdw Edson Saleh MS4 dw Dr. Rios, Dr. Tomas Physician Certification 2 Midnight Certification Type: Admission for Inpatient Services Order for Inpatient Services The services are ordered in accordance with Medicare regulations or non- Medicare payer requirements, as applicable. In the case of services not specified as inpatient-only, they are appropriately provided as inpatient services in accordance with the 2-midnight benchmark. Estimated LOS (days): 2 days is the estimated time the patient will need to remain in the hospital, assuming treatment plan goals are met and no additional complications. Post-Hospital Plan: Not yet determined Murali Andre MD Oct 01, 2017 3:15 pm
[2017-10-01] MEDS ORDERED: BUPIVACAINE/EPINEPHRINE 0.25% PF 30 ML VIAL ONE (15:17)
[2017-10-01] MEDS ORDERED: ACETAMINOPHEN 1000 MG/100 ML 100 ML IV ONE (15:21)
[2017-10-01 15:37] LABS: INTERNATIONAL NORMALIZED RATIO 1.1 RATIO
[2017-10-01] MEDS ORDERED: METOPROLOL TARTRATE 25 MG TAB PO PRN (16:00)
[2017-10-01] MEDS ORDERED: POVIDONE IODINE 5% (ANTISEPSIS KIT) 4 APPLICATIONS EACH NARE PRN (16:00)
[2017-10-01] MEDS ORDERED: CHLORHEXIDINE GLUCONATE 2 % 1 PACK (2 CLOTHS) TOPICAL PRN (16:00)
[2017-10-01] MEDS ORDERED: LACTATED RINGER'S 1000 ML IV PRN (16:00)
[2017-10-01] MEDS ORDERED: SODIUM CHLORID 0.9% 500 ML IV PRN (16:00)
[2017-10-01] MEDS ORDERED: BISACODYL 10 MG SUPP RECTAL PRN (16:15)
[2017-10-01] MEDS ORDERED: GLUCAGON 1 MG/ML VIAL OTHER PRN ×2 (16:15→18:15)
[2017-10-01] MEDS ORDERED: NALOXONE HCL 0.4 MG/ML AMP IV PUSH PRN ×2 (16:15→18:00)
[2017-10-01] MEDS ORDERED: LACTULOSE SYRUP 20 GM/30 ML CUP PO PRN (16:15)
[2017-10-01] MEDS ORDERED: ONDANSETRON HCL 4 MG/2 ML VIAL IVP PRN (16:15)
[2017-10-01] MEDS ORDERED: SENNOSIDES 8.6 MG TAB PO PRN (16:15)
[2017-10-01] MEDS ORDERED: SODIUM CHLORIDE 0.9% FLUSH 10 ML FLUSH IV FLUSH PRN (16:15)
[2017-10-01] MEDS ORDERED: DEXTROSE 50% IN WATER 50 ML VIAL(D50) IV PUSH PRN ×2 (16:15→18:15)
[2017-10-01] MEDS ORDERED: MAGNESIUM HYDROXIDE SUSP 30 ML CUP PO PRN (16:15)
[2017-10-01] MEDS ORDERED: SODIUM CHLOR 0.9% 1000 ML INJ 1,000 ML IV SCH (16:15)
[2017-10-01] MEDS ORDERED: INSULIN ASPART SUPPLEMENTAL SCALE SQ SCH (17:00)
--- NOTE | 2017-10-01 17:58 | HHI.PR ---
cc: Cali Renteria MD Immediate Post Op Note Procedure Date: Oct 01, 2017 Pre Op Diagnosis: Perforated appendicitis Post Op Diagnosis: Same, with abscess Surgeon: Cali Renteria Superintendent Pipelines(s): Kayla Pastor CFA Procedure: Laparoscopic appendectomy Findings: Perforated appendix with intraabdominal contamination Complications: None Specimen(s) removed: Appendix and fatty tissue to pathology Estimated blood loss: 50 ml Anesthesia: General Drains: NATHALIA IVF (1500 ml) Patient to: PACU Patient Condition: Good Date/Time of Procedure: SEE SURGICAL CARE RECORD Cali Renteria MD Oct 01, 2017 17:58
[2017-10-01] MEDS ORDERED: diphenhydrAMINE HCL 50 MG/ML VIAL IVP PRN (18:00)
[2017-10-01] MEDS ORDERED: ONDANSETRON HCL 4 MG/2 ML VIAL IV PUSH PRN (18:00)
[2017-10-01] MEDS ORDERED: Post-op Orders (for Pharmacy) XX ONE (18:00)
[2017-10-01] MEDS: LACTATED RINGER'S 1000 ML INJ 1,000 ML IV SCH (18:00)
[2017-10-01] MEDS ORDERED: DO NOT ADM ANY ANTICOAGULANT DRUGS PRN (18:00)
[2017-10-01] MEDS ORDERED: ACETAMINOPHEN/HYDROcodone 325 MG/5 MG TAB PO PRN (18:00)
[2017-10-01] MEDS ORDERED: *morphine SULFATE 4 MG/ML PERIprocedure ONLY ONE (18:13)
[2017-10-01] MEDS ORDERED: MORPHINE SULFATE 2 MG/ML INJ IV PUSH PRN (18:45)
[2017-10-01 20:00] VITALS: BP 124/61; PULSE 83; RESP 18; TEMP 97.5; O2SAT 96
[2017-10-01] MEDS ORDERED: PIPERACIL-TAZO 3.375 GM PREMIX 50 ML IV SCH (20:00)
--- NOTE | 2017-10-01 20:29 | MB ---
cc: AIMEE ORTIZ MD DATE OF CONSULTATION 10/01/17 REASON FOR CONSULTATION Acute abdominal pain with perforated appendicitis versus perforated diverticulitis. HISTORY OF PRESENT ILLNESS The patient is a 72-year-old male who was seen previously on Wednesday in this emergency room for generalized abdominal pain. He had CT scan which demonstrated no acute findings and elevated white count. He was sent home and had the increasing pain that is now in the suprapubic and right lower quadrant region. The patient had repeat imaging which demonstrated some free air and a question of appendicitis versus perforated diverticulitis. PAST MEDICAL HISTORY 1. Insulin-dependent diabetes, 2. Hyperlipidemia, 3. Hypertension 4. PE in 2013 with 6 months of Xarelto treatment. 5. The patient reports nausea but no emesis 6. Low grade temperature and diarrhea. 7. The patient has a history of left upper lobe tuberculin but no active TB. REVIEW OF SYSTEMS Significant as indicated above as well as chills and dizziness. The patient denies any chest pain or palpitations. He reports some muscle aches. PAST SURGERIES 1. Umbilical hernia repair with mesh in 1984, 2. Removal of lipoma of the right side of the neck 3. Finger surgery x2. ALLERGIES No known allergies SOCIAL HISTORY Former cigar smoker and occasionally consumes scotch. PHYSICAL EXAMINATION GENERAL: A male who is uncomfortable. VITAL SIGNS: BP 143/68, pulse 85, respirations 17, temperature 98.0, 97% saturation on room air. HEENT: Sclerae anicteric. Pupils reactive. CHEST: Clear to auscultation. CARDIAC: Regular rate and rhythm. ABDOMEN: Soft with tenderness located throughout diffusely but with more pain in both lower quadrants with significantly increased pain in the right lower quadrant with guarding and rebound. There is also suprapubic tenderness as well. EXTREMITIES: Pulses are intact. NEUROLOGIC: Exam is nonfocal. LABORATORY DATA WBCs of 7.5, platelets are 275,000, BUN and creatinine 25 and 1.55, glucose is 200, lipase is normal at 99. INR is 1.1. Urinalysis demonstrates 19 WBCs and culture Is indicated. IMAGING STUDIES CT scan demonstrates marked inflammatory changes in the right lower quadrant with a small amount of free air. Appendicitis versus diverticulitis was given in the differential. ASSESSMENT A 72-year-old with previous abdominal pain that has worsened now with acute abdominal pain and peritoneal findings. I have discussed with the patient and his options including continued observation with antibiotics or exploration as he may already have perforated appendicitis. I have discussed pros and cons of each approach and they would like to proceed with surgery. I am inclined to agree. I have discussed risks of surgery including but not limited to bleeding, infection, abscess formation requiring drainage, leakage with intestinal leakage and fistula formation, adhesion formation, ileus, postoperative ileus, need for reoperation and repeat risk of DVT and PE given his previous history. I have discussed remedies, consequences, alternatives and convalescence; they vocalize understanding and agreed to proceed. MD CAROLINE Bro/ /7:44 PM 7:51 PM
--- NOTE | 2017-10-01 20:29 | MP ---
cc: CALI RENTERIA M.D. DATE OF SURGERY: 10/01/2017 PREOPERATIVE DIAGNOSIS: Perforated appendicitis. POSTOPERATIVE DIAGNOSIS: Perforated appendicitis with peritonitis. OPERATIVE PROCEDURE PERFORMED: Laparoscopic appendectomy. SURGEON: Cali Renteria MD. ANESTHESIA: General endotracheal ESTIMATED BLOOD LOSS: 50 mL. FLUIDS: 1500 mL crystalloid. COMPLICATIONS: None. DRAINS: Jefferson-Foster drain x1. SPECIMEN: Appendix and fatty tissue to pathology. FINDINGS: Perforated appendicitis. A large fatty tissue with danger of torsion that was excised as well. DESCRIPTION OF THE PROCEDURE IN DETAIL: The patient was taken to the operating room and placed on the operating table in the supine position. After an adequate level of general endotracheal anesthesia was achieved, the abdomen was prepped and draped in the usual fashion. Time-out was taken confirming the correct patient, site and procedure to be performed. Skin and subcutaneous tissue was infiltrated with local anesthetic and a 5-mm trocar was used in the right lower quadrant to enter the abdominal cavity under direct vision uneventfully utilizing the laparoscope. The abdomen was insufflated and the patient was noted to have a large number of adhesions in the right lower quadrant. A suprapubic 5 mm trocar was able to be placed. This entered the abdominal cavity under direct vision uneventfully. At this point, a larger balloon trocar could be placed to the right of the umbilicus. This entered the abdominal cavity under direct vision uneventfully. Following this, the right lower quadrant was examined. Culture was taken as there was a large amount of dirty brown fluid. This was aspirated. At this point, the right lower quadrant was explored and multiple loops of adhered bowel were freed up. This contained a large amount of inflammatory process around it. When this was freed up, the appendix was noted to have a perforation in the midportion. The appendix was freed up and the mesoappendix then divided with the harmonic scalpel. Dissection was carried back to the base of the appendix. At this point, a 0-PDS Endoloop was able to be placed over the appendix past all of the inflammatory process down on the base. This was cinched down and the appendix was then divided 1 cm distal to this with the harmonic scalpel. The appendix was placed into an EndoCatch device and removed via the periumbilical port and passed off the table. At this point, the appendiceal stump was seen to be secure and copious irrigation then ensued. There was a large floppy piece of fatty material that appeared to be either epiploica or possibly a Meckel's diverticulum, although the latter was much less likely. This was captured with a 0-PDS Endoloop and divided just distal to the Endoloop. The specimen was placed into an EndoCatch device and removed via the periumbilical port as well. The remaining irrigant including a total of 3 liters was used to irrigate the entire abdominal cavity. A Jefferson-Foster drain was brought out via the right lower quadrant trocar site and placed into the pelvis with a portion of the drain near the appendiceal stump. With everything clean and dry, the drain was fixed to the skin with a 3-0 nylon suture. The periumbilical port was removed and the fascia closed with 0 Vicryl suture. The skin was closed at this site and the infraumbilical port site with 4-0 Vicryl in an interrupted buried fashion. A 4x4 was placed around the drain. The other trocar sites were dressed with Steri-Strips. The patient was extubated and taken back to the recovery room in stable condition. He tolerated the procedure well. MD CAROLINE Bro/ALLYSSA /7:50 PM /7:57 PM
[2017-10-01 20:45] VITALS: PULSE 93
[2017-10-01] MEDS: DOCUSATE SODIUM 50 MG/SENNA 8.6 MG TAB PO SCH (21:00)
[2017-10-01] MEDS: SODIUM CHLORIDE 0.9% FLUSH 10 ML FLUSH IV FLUSH SCH (21:00)
[2017-10-01] MEDS: PCA - TOTAL MG MORPHINE DELIVERED PER SHIFT SCH (22:00)
[2017-10-01] MEDS: CARVEDILOL 6.25 MG TAB PO SCH (22:16)
[2017-10-01] MEDS: ACETAMINOPHEN/HYDROcodone 325 MG/5 MG TAB PO PRN (22:16)
[2017-10-01] MEDS: INSULIN DETEMIR 100 UNITS/ML VIAL SQ SCH (22:18)
[2017-10-01] MEDS: HYDROCHLOROTHIAZIDE 12.5 MG CAP PO SCH (22:18)
[2017-10-01] MEDS: INSULIN NovoLIN REGULAR SUPPLEMENTAL SCALE SQ SCH (22:18)
[2017-10-01] MEDS: PIPERACIL-TAZO 3.375 GM PREMIX 50 ML IV SCH (22:19)
[2017-10-02] VITALS (13 sets, daily range): BP systolic 113–134; BP diastolic 63–68; PULSE 66–84; RESP 16–18; TEMP 96.8–98.7; O2SAT 93–96
[2017-10-02] MEDS: ACETAMINOPHEN/HYDROcodone 325 MG/5 MG TAB PO PRN ×4 (05:02→21:36)
[2017-10-02] MEDS: PIPERACIL-TAZO 3.375 GM PREMIX 50 ML IV SCH ×3 (05:02→21:32)
[2017-10-02] MEDS: PCA - TOTAL MG MORPHINE DELIVERED PER SHIFT SCH ×3 (05:08→20:36)
[2017-10-02] MEDS: LACTATED RINGER'S 1000 ML INJ 1,000 ML IV SCH ×3 (05:11→23:22)
[2017-10-02] MEDS: PRAVASTATIN SOD 20 MG TAB PO SCH (08:36)
[2017-10-02] MEDS: DOCUSATE SODIUM 50 MG/SENNA 8.6 MG TAB PO SCH ×2 (08:36→20:41)
[2017-10-02] MEDS: LISINOPRIL 20 MG TAB PO SCH (08:36)
[2017-10-02] MEDS: CARVEDILOL 6.25 MG TAB PO SCH ×2 (08:37→20:35)
[2017-10-02] MEDS: HYDROCHLOROTHIAZIDE 12.5 MG CAP PO SCH ×2 (08:37→20:35)
[2017-10-02] MEDS: INSULIN DETEMIR 100 UNITS/ML VIAL SQ SCH ×2 (08:38→20:35)
[2017-10-02] MEDS: INSULIN NovoLIN REGULAR SUPPLEMENTAL SCALE SQ SCH ×4 (08:39→20:35)
[2017-10-02] MEDS: SODIUM CHLORIDE 0.9% FLUSH 10 ML FLUSH IV FLUSH SCH (08:39)
--- NOTE | 2017-10-02 09:13 | HHI.HP ---
[facility] Service Family Medicine Primary Care Physician No Primary Care Physician Admission Diagnosis Acute appendicitis Diagnoses: (1) Appendicitis with perforation Diagnosis: Principal (2) DM type 2 (diabetes mellitus, type 2) Diagnosis: Principal (3) Hypertension Diagnosis: Principal (4) FEN/PPX Diagnosis: Principal International Travel<30 Days: No Contact w/Intl Traveler<30days: No Known Affected Area: No History of Present Illness History initially limited due to time (patient being rushed emergently to OR for surgery). History obtained from patient, ER physician, and chart review. Briefly, Mr. Molina is a 72 yo M with h/o DM, hyperlipidemia, hypertension, and PE in 2013 who presented to the ED with acute abdominal pain since Wednesday that has since worsened which is his main reason for presentation today. He stated that the pain is diffuse over the right side of his abdomen but is locally exquisitely tender in his RLQ. He also reports that he has R shoulder pain that appeared around the same time of his abdominal pain. He did not have any fever or vomiting, but reported some nausea immediately prior to ED arrival. Mr Molina was seen this am in his room after having his surgery yesterday. He feels fine and stood up several times already. He has no other complaints and has been drinking liquids. When asked about his prior PE, he stated that he had flown to [place] and [place] and it was provoked though he blames injury to the chest wall. He has not had other clots. Review of Systems Constitutional: DENIES: Fever, Weight gain Respiratory: DENIES: Shortness of breath Cardiovascular: DENIES: Chest pain Gastrointestinal: COMPLAINS OF: Abdominal pain Neurologic: DENIES: Abnormal gait, Headache, Poor Balance Psychiatric: DENIES: Confusion Other ROS Limitations: Clinical Condition (patient being rushed to surgery emergently.) Constitutional: DENIES: Diaphoretic episodes, Fatigue, Fever, Weight gain, Weight loss, Chills, Dizziness, Change in appetite, Night Sweats Respiratory: DENIES: Wheezing, Shortness of breath Cardiovascular: DENIES: Chest pain, Palpitations Gastrointestinal: COMPLAINS OF: Abdominal pain, Nausea Musculoskeletal: COMPLAINS OF: Muscle aches (R shoulder pain starting around the time of abdominal pain.) Past Family Social History Past Medical History Past Medical History Hypertension, DM Type II, Osteoarthritis, History of a left upper lobe tuberculum, but no history of active TB. Past Surgical History umbilical hernia repair; removal of lipoma of right side of neck; finger surgery x 2 (sebaceous cysts removal) Allergies: Coded Allergies: No Known Allergies (Unverified Allergy, Unknown, 10/01/17) Family History Mother - from heart failure Father - from duodenal cancer Social History Tobacco: Former cigar smoker Alcohol: Occasional consumption of Scotch Illicit Drugs: Denies Physical Exam Vital Signs Vital Signs Date Time Temp Pulse Resp B/P (MAP) Pulse Ox O2 Delivery O2 Flow Rate FiO2 10/02/17 08:11 94 21 10/02/17 08:00 97.1 69 17 113/65 (81) 95 10/02/17 04:20 75 10/02/17 04:00 97.5 79 16 118/68 (85) 94 10/02/17 03:10 93 10/02/17 00:08 80 10/02/17 00:00 97.2 84 18 131/64 (86) 94 10/01/17 20:45 93 10/01/17 20:00 97.5 83 18 124/61 (82) 96 10/01/17 18:30 97.6 85 16 135/67 (89) 98 Nasal Cannula 2 10/01/17 18:18 15 10/01/17 18:15 82 16 131/66 (87) 97 Nasal Cannula 2 10/01/17 18:00 84 16 129/65 (86) 96 Nasal Cannula 2 10/01/17 17:45 81 18 133/60 (84) 95 Nasal Cannula 2 10/01/17 17:30 97.6 83 28 135/61 (85) 100 Simple Mask 6 10/01/17 14:16 85 17 143/68 (93) 97 Room Air 10/01/17 11:13 98.0 92 18 128/68 (88) 95 Room Air Physical Exam GENERAL: well nourished, well developed, lying in bed, able to move about. no real complaints SKIN: No rashes, ecchymoses or lesions. Cool and dry. HEAD: Atraumatic. Normocephalic. EYES: Pupils equal round and reactive. Extraocular motions intact. No scleral icterus. No injection or drainage. ENT: Nose without bleeding, purulent drainage or septal hematoma. Airway patent. CARDIOVASCULAR: RRR no rubs, gallops, or murmurs appreciated. equal pulses bilaterally. RESPIRATORY: CTA bilaterally, breath sounds equal bilaterally. no rales, rhonchi , or wheezes heard. GASTROINTESTINAL: Abdomen soft, s/p surgery no rebound. hypoactive bowel sounds throughout. MSK: no edema of bilateral lower extremities. NEUROLOGICAL: Awake and alert. grossly nonfocal. able to respond and move about the room when prompted. Laboratory Laboratory Tests Test 10/01/17 11:50 10/01/17 12:05 10/01/17 12:56 White Blood Count 7.5 Red Blood Count 3.98 Hemoglobin 12.5 Hematocrit 37.3 Mean Corpuscular Volume 93.9 Mean Corpuscular Hemoglobin 31.4 Mean Corpuscular Hemoglobin Concent 33.5 Red Cell Distribution Width 13.9 Platelet Count 275 Mean Platelet Volume 7.2 Neutrophils (%) (Auto) 85.0 Lymphocytes (%) (Auto) 5.6 Monocytes (%) (Auto) 4.8 Eosinophils (%) (Auto) 4.6 Basophils (%) (Auto) 0.0 Neutrophils # (Auto) 6.4 Lymphocytes # (Auto) 0.4 Monocytes # (Auto) 0.4 Eosinophils # (Auto) 0.3 Basophils # (Auto) 0.0 CBC Comment AUTO DIFF Differential Total Cells Counted 100 Neutrophils % (Manual) 62 Band Neutrophils % 20 Lymphocytes % 7 Monocytes % 6 Eosinophils % 2 Neutrophils # (Manual) 6.4 Metamyelocytes 3 Differential Comment FINAL DIFF MANUAL Toxic Granulation 1+ Platelet Estimate NORMAL Platelet Morphology Comment NORMAL Red Cell Morphology Comment NORMAL Blood Urea Nitrogen 25 Creatinine 1.55 Random Glucose 200 Total Protein 7.0 Albumin 2.7 Calcium Level 9.1 Alkaline Phosphatase 39 Aspartate Amino Transf (AST/SGOT) 6 Alanine Aminotransferase (ALT/SGPT) 16 Total Bilirubin 0.5 Sodium Level 132 Potassium Level 3.8 Chloride Level 96 Carbon Dioxide Level 28.2 Anion Gap 8 Estimat Glomerular Filtration Rate 44 Lactic Acid Level 1.7 Lipase 99 Urine Color LIGHT-RED Urine Turbidity HAZY Urine pH 5.5 Urine Specific [place] 1.017 Urine Protein 100 Urine Glucose (UA) NEG Urine Ketones TRACE Urine Occult Blood TRACE Urine Nitrite NEG Urine Bilirubin NEG Urine Urobilinogen LESS THAN 2.0 Urine Leukocyte Esterase TRACE Urine RBC 2 Urine WBC 19 Urine Squamous Epithelial Cells 1 Urine Amorphous Sediment OCC Urine Bacteria RARE Urine Hyaline Casts 3 Urine Granular Casts 4 Urine Mucus FEW Microscopic Urinalysis Comment CULTURE INDICATED Prothrombin Time 11.0 Prothromb Time International Ratio 1.1 Activated Partial Thromboplast Time 30.3 Date/Time Source Procedure Growth Status 10/01/17 16:32 Fluid Peritoneal Fluid Gram Stain - Final Resulted 10/01/17 16:32 Fluid Peritoneal Fluid Body Fluid Culture Pending Resulted 10/01/17 12:05 Stool Stool Cryptosporidium Exam Pending Received 10/01/17 12:05 Stool Stool Giardia Antigen (HA) Pending Received 10/01/17 12:05 Urine Clean Catch Urine Culture Pending Received Result Diagram: 10/01/17 1150 10/01/17 1150 Imaging Last Impressions Chest X-Ray 10/01/17 1148 Signed Impressions: Service Date/Time: Sunday, October 01, 2017 12:01 - CONCLUSION: No acute disease. Jeremiah Celeste MD FACR Abdomen/Pelvis CT 10/01/17 1148 Signed Impressions: Service Date/Time: Sunday, October 01, 2017 13:10 - CONCLUSION: Marked inflammatory changes right lower quadrant with small amount of free air. No defined abscess. Considerations include both diverticulitis and appendicitis. I would favor appendicitis., Series 601 image 51 Jeremiah Celeste MD FACR Caprini VTE Risk Assessment Caprini VTE Risk Assessment: Mod/High Risk (score >= 2) Caprini Risk Assessment Model Point Value = 1 Point Value = 2 Point Value = 3 Point Value = 5 Age 41-60 Minor surgery BMI > 25 kg/m2 Swollen legs Varicose veins or History of unexplained or recurrent spontaneous Oral contraceptives or hormone replacement Sepsis (< 1 month) Serious lung disease, including pneumonia (< 1 month) Abnormal pulmonary function Acute myocardial infarction Congestive heart failure (< 1 month) History of inflammatory bowel disease Medical patient at bed rest Age 61-74 Arthroscopic surgery Major open surgery (> 45 min) Laparoscopic surgery (> 45 min) Malignancy Confined to bed (> 72 hours) Immobilizing plaster cast Central venous access Age >= 75 History of VTE Family history of VTE Factor V Leiden Prothrombin 12025L Lupus anticoagulant Anticardiolipin antibodies Elevated serum homocysteine Heparin-induced thrombocytopenia Other congenital or acquired thrombophilia Stroke (< 1 month) Elective arthroplasty Hip, pelvis, or leg fracture Acute spinal cord injury (< 1 month) Prophylaxis Regimen Total Risk Factor Score Risk Level Prophylaxis Regimen 0-1 Low Early ambulation 2 Moderate Order ONE of the following: *Sequential Compression Device (SCD) *Heparin 5000 units SQ BID 3-4 Higher Order ONE of the following medications: *Heparin 5000 units SQ TID *Enoxaparin/Lovenox 40 mg SQ daily (WT < 150 kg, CrCl > 30 mL/min) *Enoxaparin/Lovenox 30 mg SQ daily (WT < 150 kg, CrCl > 10-29 mL/min) *Enoxaparin/Lovenox 30 mg SQ BID (WT < 150 kg, CrCl > 30 mL/min) AND/OR *Sequential Compression Device (SCD) 5 or more Highest Order ONE of the following medications: *Heparin 5000 units SQ TID (Preferred with Epidurals) *Enoxaparin/Lovenox 40 mg SQ daily (WT < 150 kg, CrCl > 30 mL/min) *Enoxaparin/Lovenox 30 mg SQ daily (WT < 150 kg, CrCl > 10-29 mL/min) *Enoxaparin/Lovenox 30 mg SQ BID (WT < 150 kg, CrCl > 30 mL/min) AND *Sequential Compression Device (SCD) Assessment and Plan Assessment and Plan Mr. Molina is a 72 yo M who presents emergently for acute abdominal pain: Problem List: (1) Appendicitis with perforation ICD Codes: K35.2 - Acute appendicitis with generalized peritonitis Status: Acute Plan: CT findings showed acute appendicitis with perforation (see above) Hemodynamically stable No leukocytosis - Consulted gen surg, appreciate assistance' - went to OR for emergent surgery - Zosyn 3.375 Q6H for PPx - NPO initially now advancing diet; IV hydration - Zofran for nausea - Trend CBC, BMP - PO pain meds (2) DM type 2 (diabetes mellitus, type 2) ICD Codes: E11.9 - DM type 2 (diabetes mellitus, type 2) Status: Chronic Plan: BSG on admission 200 - Hold home metformin, GLP-1 modifier - Levemir 8U SQ Q12H - Novolog SSI - Accucheks AC&HS (3) Hypertension ICD Codes: I10 - Hypertension Status: Chronic Plan: telemetry, continue home meds. (4) FEN/PPX Plan: Fluids: NS @ 100 cc/hr, can heplock depending on how he takes po Elecs: Monitor and replete PRN Nutrition: advancing DVT: SCD bilateral legs; heparin 24 hours after surgery Constipation protocol in place CODE STATUS: Full code Problem Qualifiers (1) DM type 2 (diabetes mellitus, type 2): Qualified Codes: E11.8 - Type 2 diabetes mellitus with unspecified complications (2) Hypertension: Qualified Codes: I10 - Essential (primary) hypertension Светлана Tomas MD Oct 02, 2017 09:13
--- NOTE | 2017-10-02 10:31 | HHI.PR ---
cc: Kishor Denis MD Subjective Subjective Notes DAILY PROGRESS NOTE FOR SURGICAL ATTENDING, DR. KISHOR DENIS I feel well and better Objective Vitals/I&O Vital Signs Date Time Temp Pulse Resp B/P (MAP) Pulse Ox O2 Delivery O2 Flow Rate FiO2 10/02/17 08:11 94 21 10/02/17 08:00 97.1 69 17 113/65 (81) 10/01/17 18:30 Nasal Cannula 2 Labs Laboratory Tests Test 10/01/17 11:50 10/01/17 12:05 10/01/17 12:56 White Blood Count 7.5 Red Blood Count 3.98 Hemoglobin 12.5 Hematocrit 37.3 Mean Corpuscular Volume 93.9 Mean Corpuscular Hemoglobin 31.4 Mean Corpuscular Hemoglobin Concent 33.5 Red Cell Distribution Width 13.9 Platelet Count 275 Mean Platelet Volume 7.2 Neutrophils (%) (Auto) 85.0 Lymphocytes (%) (Auto) 5.6 Monocytes (%) (Auto) 4.8 Eosinophils (%) (Auto) 4.6 Basophils (%) (Auto) 0.0 Neutrophils # (Auto) 6.4 Lymphocytes # (Auto) 0.4 Monocytes # (Auto) 0.4 Eosinophils # (Auto) 0.3 Basophils # (Auto) 0.0 CBC Comment AUTO DIFF Differential Total Cells Counted 100 Neutrophils % (Manual) 62 Band Neutrophils % 20 Lymphocytes % 7 Monocytes % 6 Eosinophils % 2 Neutrophils # (Manual) 6.4 Metamyelocytes 3 Differential Comment FINAL DIFF MANUAL Toxic Granulation 1+ Platelet Estimate NORMAL Platelet Morphology Comment NORMAL Red Cell Morphology Comment NORMAL Blood Urea Nitrogen 25 Creatinine 1.55 Random Glucose 200 Total Protein 7.0 Albumin 2.7 Calcium Level 9.1 Alkaline Phosphatase 39 Aspartate Amino Transf (AST/SGOT) 6 Alanine Aminotransferase (ALT/SGPT) 16 Total Bilirubin 0.5 Sodium Level 132 Potassium Level 3.8 Chloride Level 96 Carbon Dioxide Level 28.2 Anion Gap 8 Estimat Glomerular Filtration Rate 44 Lactic Acid Level 1.7 Lipase 99 Urine Color LIGHT-RED Urine Turbidity HAZY Urine pH 5.5 Urine Specific [place] 1.017 Urine Protein 100 Urine Glucose (UA) NEG Urine Ketones TRACE Urine Occult Blood TRACE Urine Nitrite NEG Urine Bilirubin NEG Urine Urobilinogen LESS THAN 2.0 Urine Leukocyte Esterase TRACE Urine RBC 2 Urine WBC 19 Urine Squamous Epithelial Cells 1 Urine Amorphous Sediment OCC Urine Bacteria RARE Urine Hyaline Casts 3 Urine Granular Casts 4 Urine Mucus FEW Microscopic Urinalysis Comment CULTURE INDICATED Prothrombin Time 11.0 Prothromb Time International Ratio 1.1 Activated Partial Thromboplast Time 30.3 Date/Time Source Procedure Growth Status 10/01/17 16:32 Fluid Peritoneal Fluid Gram Stain - Final Resulted 10/01/17 16:32 Fluid Peritoneal Fluid Body Fluid Culture Pending Resulted 10/01/17 12:05 Stool Stool Cryptosporidium Exam Pending Received 10/01/17 12:05 Stool Stool Giardia Antigen (HA) Pending Received 10/01/17 12:05 Urine Clean Catch Urine Culture Pending Received Radiology Last Impressions Chest X-Ray 10/01/17 1148 Signed Impressions: Service Date/Time: Sunday, October 01, 2017 12:01 - CONCLUSION: No acute disease. Jeremiah Celeste MD FACR Abdomen/Pelvis CT 10/01/17 1148 Signed Impressions: Service Date/Time: Sunday, October 01, 2017 13:10 - CONCLUSION: Marked inflammatory changes right lower quadrant with small amount of free air. No defined abscess. Considerations include both diverticulitis and appendicitis. I would favor appendicitis., Series 601 image 51 Jeremiah Celeste MD FACR Cardiovascular: Regular Lungs: Clear Abdomen: Other (NATHALIA in place), Post-op tenderness Wound Wound : Wound Location: Abdomen (port sites dry) Appearance: Clean & Dry Drainage: Cloudy (cloudy fluid in NATHALIA) A/P Problem List: (1) Status post laparoscopic appendectomy ICD Codes: Z90.49 - Acquired absence of other specified parts of digestive tract Status: Acute (2) Appendicitis with perforation ICD Codes: K35.2 - Acute appendicitis with generalized peritonitis Status: Acute Assessment and Plan Patient feels most comfortable after having his appendix removed he would like to try more food Attending Statement NOTE FOR SURGICAL ATTENDING, DR. KISHOR DENIS I attest that I had a [id number] encounter with the patient on the same day, and personally performed and documented my assessment and findings in the medical record. The following services were provided during this hospital visit: Chart data review, vital sign assessments/reviewing monitor data Review of consultations notes if present. Medication orders/review and/or management Ordering and/or reviewing lab tests Ordering and/or interpreting/reviewing x-rays and/or diagnostic studies Care of the patient and discussion of the patient with the care team Documentation time To help prompt me to consider important information that might be impacting today's encounter and assessment, information from prior notes written by myself or my colleagues may have been "brought forward/copy and pasted" into today's note. Kishor Denis MD Oct 02, 2017 10:31
[2017-10-02 11:17] LABS: AUTOMATED NEUTROPHIL # 8.6 TH/MM3 (1.8-7.7); BASOPHIL % 0.1 % (0.0-2.0); EOSINOPHIL # 0.1 TH/MM3 (0-0.4); EOSINOPHIL % 0.9 % (0.0-4.0); HEMATOCRIT 32.5 % (39.0-51.0); LYMPH % 4.2 % (9.0-44.0); LYMPHOCYTE # 0.4 TH/MM3 (1.0-4.8); MEAN CELL VOLUME 94.3 FL (80.0-100.0); MEAN CORPUSCULAR HEMOGLOBIN 31.8 PG (27.0-34.0); MEAN CORPUSCULAR HGB CONC 33.8 % (32.0-36.0); MONO % 6.8 % (0.0-8.0); MONOCYTE # 0.7 TH/MM3 (0-0.9); PLATELET COUNT 290 TH/MM3 (150-450); RED BLOOD COUNT 3.44 MIL/MM3 (4.50-5.90); WHITE BLOOD COUNT 9.8 TH/MM3 (4.0-11.0)
[2017-10-02 11:56] LABS: BICARBONATE 24.6 MEQ/L (21.0-32.0); CALCIUM 8.3 MG/DL (8.5-10.1); CREATININE 1.34 MG/DL (0.60-1.30)
[2017-10-02] MEDS ORDERED: CALCIUM CARBONATE 1.25 GM (CA 500 MG) TAB PO ONE (13:45)
[2017-10-02] MEDS: HEPARIN SODIUM - SQ 10,000 UNITS/ML VIAL SQ SCH ×2 (17:07→23:22)
[2017-10-03] VITALS (11 sets, daily range): BP systolic 117–159; BP diastolic 62–78; PULSE 62–91; RESP 17–20; TEMP 96.2–99; O2SAT 93–97
[2017-10-03] MEDS: ACETAMINOPHEN/HYDROcodone 325 MG/5 MG TAB PO PRN ×5 (03:30→22:45)
[2017-10-03] MEDS: PIPERACIL-TAZO 3.375 GM PREMIX 50 ML IV SCH ×3 (05:42→21:39)
[2017-10-03 07:56] LABS: AUTOMATED NEUTROPHIL # 7.3 TH/MM3 (1.8-7.7); BASOPHIL % 0.2 % (0.0-2.0); EOSINOPHIL # 0.6 TH/MM3 (0-0.4); EOSINOPHIL % 5.9 % (0.0-4.0); HEMATOCRIT 32.6 % (39.0-51.0); HEMOGLOBIN 11.3 GM/DL (13.0-17.0); LYMPH % 9.6 % (9.0-44.0); LYMPHOCYTE # 0.9 TH/MM3 (1.0-4.8); MEAN CELL VOLUME 93.9 FL (80.0-100.0); MEAN CORPUSCULAR HEMOGLOBIN 32.6 PG (27.0-34.0); MEAN CORPUSCULAR HGB CONC 34.8 % (32.0-36.0); MEAN PLATELET VOLUME 6.8 FL (7.0-11.0); MONO % 10.1 % (0.0-8.0); NEUT % 74.2 % (16.0-70.0); PLATELET COUNT 303 TH/MM3 (150-450); RED BLOOD COUNT 3.48 MIL/MM3 (4.50-5.90); RED CELL DISTRIBUTION WIDTH 14.1 % (11.6-17.2); WHITE BLOOD COUNT 9.8 TH/MM3 (4.0-11.0)
[2017-10-03] MEDS: INSULIN NovoLIN REGULAR SUPPLEMENTAL SCALE SQ SCH ×4 (08:03→19:32)
[2017-10-03 08:07] LABS: BICARBONATE 30.2 MEQ/L (21.0-32.0); CALCIUM 8.6 MG/DL (8.5-10.1); CREATININE 1.15 MG/DL (0.60-1.30)
[2017-10-03] MEDS: DOCUSATE SODIUM 50 MG/SENNA 8.6 MG TAB PO SCH ×2 (08:39→19:33)
[2017-10-03] MEDS: LISINOPRIL 20 MG TAB PO SCH (08:40)
[2017-10-03] MEDS: PRAVASTATIN SOD 20 MG TAB PO SCH (08:40)
[2017-10-03] MEDS: HEPARIN SODIUM - SQ 10,000 UNITS/ML VIAL SQ SCH ×3 (08:40→22:47)
[2017-10-03] MEDS: HYDROCHLOROTHIAZIDE 12.5 MG CAP PO SCH ×2 (08:40→19:33)
[2017-10-03] MEDS: CARVEDILOL 6.25 MG TAB PO SCH ×2 (08:40→19:33)
[2017-10-03] MEDS: INSULIN DETEMIR 100 UNITS/ML VIAL SQ SCH ×2 (08:41→19:33)
[2017-10-03] MEDS: LACTATED RINGER'S 1000 ML INJ 1,000 ML IV SCH (08:43)
[2017-10-03 08:46] LABS: BANDS 17 % (0-6); LYMPHOCYTES 8 % (9-44); MONOCYTES 7 % (0-8); MYELOCYTES 1 % (0-0); NEUTROPHIL # MANUAL DIFF 7.6 TH/MM3 (1.8-7.7); POLYS (SEG NEUTROPHILS) 60 % (16-70); TOXIC GRANULATION 1+ (NORMAL)
--- NOTE | 2017-10-03 10:44 | HHI.FPPN ---
Subjective Remarks Mr Molina is having some gas pain but no bowel movement yet. His was an OB nurse and requested simethicone. He is unsure about his drain and is concerned that it has changed in color and character. He denied much pain except from the "gas" and cramping. He was showing pictures of his travels to [place] and the [place] he saw so he was doing well overall and denied other problems. Objective Vitals Vital Signs Date Time Temp Pulse Resp B/P (MAP) Pulse Ox O2 Delivery O2 Flow Rate FiO2 10/03/17 08:00 97.9 74 17 120/75 (90) 93 10/03/17 04:04 76 10/03/17 04:00 97.1 80 20 126/70 (88) 97 10/03/17 00:25 98.6 72 18 117/62 (80) 97 10/03/17 00:00 62 10/02/17 20:33 98.7 75 18 134/63 (86) 96 10/02/17 20:00 84 10/02/17 16:14 93 21 10/02/17 16:00 96.8 75 17 115/63 (80) 93 10/02/17 12:00 66 10/02/17 12:00 96.9 70 17 129/65 (86) 93 I/O 10/02/17 10/02/17 10/02/17 10/03/17 10/03/17 10/03/17 07:00 15:00 23:00 07:00 15:00 23:00 Intake Total 983 ml 1536 ml 1830 ml Output Total 490 ml 883 ml 1003 ml Balance 493 ml 653 ml 827 ml Intake Oral 240 ml 1436 ml 780 ml IV Total 743 ml 100 ml 1050 ml Output Urine Total 450 ml 850 ml 1000 ml Drainage Total 40 ml 33 ml 3 ml # Bowel Movements 0 0 Result Diagram: 10/03/1772710/03/17727 Objective Remarks GENERAL: well nourished, well developed, lying in bed, able to move about. no real complaints SKIN: No rashes, ecchymoses or lesions. Cool and dry. HEAD: Atraumatic. Normocephalic. EYES: Pupils equal round and reactive. Extraocular motions intact. No scleral icterus. No injection or drainage. ENT: Nose without bleeding, purulent drainage or septal hematoma. Airway patent. CARDIOVASCULAR: RRR no rubs, gallops, or murmurs appreciated. equal pulses bilaterally. RESPIRATORY: CTA bilaterally, breath sounds equal bilaterally. no rales, rhonchi , or wheezes heard. GASTROINTESTINAL: Abdomen soft, s/p surgery no rebound. bowel sounds throughout. drain in place MSK: no edema of bilateral lower extremities. NEUROLOGICAL: Awake and alert. grossly nonfocal. A/P Assessment and Plan Mr. Molina is a 72 yo M who presents emergently for acute abdominal pain: Problem List: (1) Appendicitis with perforation ICD Codes: K35.2 - Acute appendicitis with generalized peritonitis Status: Acute Plan: CT findings showed acute appendicitis with perforation (see above) Hemodynamically stable No leukocytosis - Consulted gen surg, appreciate assistance' - went to OR for emergent surgery - Zosyn 3.375 Q6H for PPx - NPO initially now advancing diet - Zofran for nausea - Trend CBC, BMP, needs K - PO pain meds (2) DM type 2 (diabetes mellitus, type 2) ICD Codes: E11.9 - DM type 2 (diabetes mellitus, type 2) Status: Chronic Plan: BSG on admission 200 - Hold home metformin, GLP-1 modifier - Levemir 8U SQ Q12H - Novolog SSI - Accucheks AC&HS (3) Hypertension ICD Codes: I10 - Hypertension Status: Chronic Plan: telemetry, continue home meds. (4) FEN/PPX Plan: Fluids: NS @ 100 cc/hr, can heplock depending on how he takes po Elecs: Monitor and replete PRN Nutrition: advancing DVT: SCD bilateral legs; heparin 24 hours after surgery Constipation protocol in place CODE STATUS: Full code Problem Qualifiers (1) DM type 2 (diabetes mellitus, type 2): Qualified Codes: E11.8 - Type 2 diabetes mellitus with unspecified complications (2) Hypertension: Qualified Codes: I10 - Essential (primary) hypertension Светлана Tomas MD Oct 03, 2017 10:44
--- NOTE | 2017-10-03 11:45 | HHI.PR ---
Subjective Subjective Notes no acute issues, +flatus, no bm, burping, mild soft distension Objective Vitals/I&O Vital Signs Date Time Temp Pulse Resp B/P (MAP) Pulse Ox O2 Delivery O2 Flow Rate FiO2 10/03/17 08:00 97.9 74 17 120/75 (90) 93 10/02/17 16:14 21 10/01/17 18:30 Nasal Cannula 2 Labs Laboratory Tests Test 10/03/17 07:28 White Blood Count 9.8 Red Blood Count 3.48 Hemoglobin 11.3 Hematocrit 32.6 Mean Corpuscular Volume 93.9 Mean Corpuscular Hemoglobin 32.6 Mean Corpuscular Hemoglobin Concent 34.8 Red Cell Distribution Width 14.1 Platelet Count 303 Mean Platelet Volume 6.8 Neutrophils (%) (Auto) 74.2 Lymphocytes (%) (Auto) 9.6 Monocytes (%) (Auto) 10.1 Eosinophils (%) (Auto) 5.9 Basophils (%) (Auto) 0.2 Neutrophils # (Auto) 7.3 Lymphocytes # (Auto) 0.9 Monocytes # (Auto) 1.0 Eosinophils # (Auto) 0.6 Basophils # (Auto) 0.0 CBC Comment AUTO DIFF Differential Total Cells Counted 100 Neutrophils % (Manual) 60 Band Neutrophils % 17 Lymphocytes % 8 Monocytes % 7 Eosinophils % 7 Neutrophils # (Manual) 7.6 Myelocytes 1 Differential Comment FINAL DIFF MANUAL Toxic Granulation 1+ Platelet Estimate NORMAL Platelet Morphology Comment NORMAL Blood Urea Nitrogen 20 Creatinine 1.15 Random Glucose 134 Calcium Level 8.6 Sodium Level 137 Potassium Level 3.3 Chloride Level 100 Carbon Dioxide Level 30.2 Anion Gap 7 Estimat Glomerular Filtration Rate 62 Date/Time Source Procedure Growth Status 10/01/17 16:32 Fluid Peritoneal Fluid Gram Stain - Final Complete 10/01/17 16:32 Body Fluid Culture - Final Escherichia Coli Viridans Streptococcus Grp Complete 10/01/17 12:05 Stool Stool Cryptosporidium Exam Pending Received 10/01/17 12:05 Stool Stool Giardia Antigen (HA) Pending Received 10/01/17 12:05 Urine Clean Catch Urine Culture - Final <10,000 CFU/ML MIXED GRAM POSITIVE FL... Complete Radiology Last Impressions Chest X-Ray 10/01/17 1148 Signed Impressions: Service Date/Time: Sunday, October 01, 2017 12:01 - CONCLUSION: No acute disease. Jeremiah Celeste MD FACR Abdomen/Pelvis CT 10/01/17 1148 Signed Impressions: Service Date/Time: Sunday, October 01, 2017 13:10 - CONCLUSION: Marked inflammatory changes right lower quadrant with small amount of free air. No defined abscess. Considerations include both diverticulitis and appendicitis. I would favor appendicitis., Series 601 image 51 Jeremiah Celeste MD FACR Abdomen: Other (soft mild incisional tenderness, mild tympani ) A/P Problem List: (1) Status post laparoscopic appendectomy ICD Codes: Z90.49 - Acquired absence of other specified parts of digestive tract Status: Acute (2) Appendicitis with perforation ICD Codes: K35.2 - Acute appendicitis with generalized peritonitis Status: Acute Assessment and Plan POD 2 .Lap appy for perf rory drain PLAN Full diet until bm replace k ambulate dvt ppx abx Mohan Russell MD Oct 03, 2017 11:45
[2017-10-03] MEDS: SIMETHICONE 80 MG CHEWABLE TAB CHEW PRN ×2 (13:13→22:45)
[2017-10-03] MEDS ORDERED: POTASSIUM CHLORIDE 10 MEQ CONTROLLED RELEASE TAB PO ONE (13:45)
[2017-10-04] VITALS (9 sets, daily range): BP systolic 127–158; BP diastolic 74–81; PULSE 55–88; RESP 16–18; TEMP 96–97.8; O2SAT 94–96
[2017-10-04] MEDS: ACETAMINOPHEN/HYDROcodone 325 MG/5 MG TAB PO PRN ×5 (03:30→23:40)
[2017-10-04] MEDS: PIPERACIL-TAZO 3.375 GM PREMIX 50 ML IV SCH ×3 (05:29→20:25)
[2017-10-04 05:41] LABS: HEMATOCRIT 33.7 % (39.0-51.0); HEMOGLOBIN 11.3 GM/DL (13.0-17.0); MEAN CELL VOLUME 93.4 FL (80.0-100.0); MEAN CORPUSCULAR HEMOGLOBIN 31.3 PG (27.0-34.0); MEAN CORPUSCULAR HGB CONC 33.5 % (32.0-36.0); MEAN PLATELET VOLUME 6.6 FL (7.0-11.0); PLATELET COUNT 325 TH/MM3 (150-450); RED BLOOD COUNT 3.61 MIL/MM3 (4.50-5.90); WHITE BLOOD COUNT 8.8 TH/MM3 (4.0-11.0)
[2017-10-04 05:58] LABS: BICARBONATE 29.6 MEQ/L (21.0-32.0); CALCIUM 8.6 MG/DL (8.5-10.1); CREATININE 1.12 MG/DL (0.60-1.30)
[2017-10-04] MEDS: INSULIN NovoLIN REGULAR SUPPLEMENTAL SCALE SQ SCH ×4 (08:00→20:37)
[2017-10-04] MEDS: HEPARIN SODIUM - SQ 10,000 UNITS/ML VIAL SQ SCH ×3 (08:30→23:41)
[2017-10-04] MEDS: DOCUSATE SODIUM 50 MG/SENNA 8.6 MG TAB PO SCH ×2 (09:00→20:26)
[2017-10-04] MEDS: CARVEDILOL 6.25 MG TAB PO SCH ×2 (09:00→20:25)
[2017-10-04] MEDS: LISINOPRIL 20 MG TAB PO SCH (09:00)
[2017-10-04] MEDS: HYDROCHLOROTHIAZIDE 12.5 MG CAP PO SCH ×2 (09:00→20:25)
[2017-10-04] MEDS: PRAVASTATIN SOD 20 MG TAB PO SCH (09:00)
[2017-10-04] MEDS: INSULIN DETEMIR 100 UNITS/ML VIAL SQ SCH ×2 (09:00→20:37)
[2017-10-04] MEDS: SIMETHICONE 80 MG CHEWABLE TAB CHEW PRN ×2 (09:04→23:39)
--- NOTE | 2017-10-04 11:21 | HHI.PR ---
Subjective Subjective Notes Feeling better today but still sluggish Has been OOB to bathroom Walked hallways several times yesterday Objective Vitals/I&O Vital Signs Date Time Temp Pulse Resp B/P (MAP) Pulse Ox O2 Delivery O2 Flow Rate FiO2 10/04/17 08:36 94 21 10/04/17 08:00 96.4 55 16 157/81 (106) 10/01/17 18:30 Nasal Cannula 2 Labs Laboratory Tests Test 10/04/17 05:25 White Blood Count 8.8 Red Blood Count 3.61 Hemoglobin 11.3 Hematocrit 33.7 Mean Corpuscular Volume 93.4 Mean Corpuscular Hemoglobin 31.3 Mean Corpuscular Hemoglobin Concent 33.5 Red Cell Distribution Width 14.0 Platelet Count 325 Mean Platelet Volume 6.6 Blood Urea Nitrogen 14 Creatinine 1.12 Random Glucose 128 Calcium Level 8.6 Sodium Level 136 Potassium Level 3.5 Chloride Level 98 Carbon Dioxide Level 29.6 Anion Gap 8 Estimat Glomerular Filtration Rate 64 Date/Time Source Procedure Growth Status 10/01/17 16:32 Fluid Peritoneal Fluid Gram Stain - Final Complete 10/01/17 16:32 Body Fluid Culture - Final Escherichia Coli Viridans Streptococcus Grp Complete 10/01/17 12:05 Stool Stool Cryptosporidium Exam - Final NEGATIVE - NO CRYPTOSPORIDIUM ANTIGEN... Complete 10/01/17 12:05 Stool Stool Giardia Antigen (HA) - Final NEGATIVE - NO GIARDIA ANTIGEN DETECTE... Complete 10/01/17 12:05 Urine Clean Catch Urine Culture - Final <10,000 CFU/ML MIXED GRAM POSITIVE FL... Complete Radiology Last Impressions Chest X-Ray 10/01/17 1148 Signed Impressions: Service Date/Time: Sunday, October 01, 2017 12:01 - CONCLUSION: No acute disease. Jeremiah Celeste MD FACR Abdomen/Pelvis CT 10/01/17 1148 Signed Impressions: Service Date/Time: Sunday, October 01, 2017 13:10 - CONCLUSION: Marked inflammatory changes right lower quadrant with small amount of free air. No defined abscess. Considerations include both diverticulitis and appendicitis. I would favor appendicitis., Series 601 image 51 Jeremiah Celeste MD FACR Cardiovascular: Regular Lungs: Clear Abdomen: Other (lap sites c/d/i; NATHALIA with serous fluid---minimal; mildly distended; mildly tender in RLQ ) Extremities: No edema A/P Problem List: (1) Status post laparoscopic appendectomy ICD Codes: Z90.49 - Acquired absence of other specified parts of digestive tract Status: Acute (2) Appendicitis with perforation ICD Codes: K35.2 - Acute appendicitis with generalized peritonitis Status: Acute Assessment and Plan 72 year old male POD3 lap appy; perforated -High risk for post op ileus due to perforated appendicitis -Continue full liquids for now-- small meals okay -Await bowel activity -Labs okay today -Zosyn -OOB and mobilize -Heparin Subq -IS Attending Note - Dr. Renteria Just had a large BM Labs noted Will likely go home with drain in place Probable discharge home tomorrow on PO antibiotics F/U my office one week The exam, history, and the medical decision-making described in the above note were completed with the assistance of the mid-level provider. I reviewed and agree with the findings presented. I attest that I had a [id number] encounter with the patient on the same day, and personally performed and documented my assessment and findings in the medical record. Daniela Lu Oct 04, 2017 11:21 Cali Renteria MD Oct 04, 2017 18:00
--- NOTE | 2017-10-04 11:24 | HHI.FPPN ---
Subjective Remarks Mr. Molina is a 72yo M with PMHx of HTN, DM2, and Hyperlipidemia, and PE, who presented acutely with appendicitis that was treated surgically with lap appy 3 days ago. His presentation was complicated by appendix perforation for which he was given a Jefferson-Foster Drain and IV Zosyn. Today, he has no acute issues. He had an uneventful night. Remarks that he has had copious flatulence but no BM yet. Patient is able to get OOB and sit in bedside chair, and remarks that his pain is managed adequately with meds. (Karen Nunez MD R2) Objective Vitals Vital Signs Date Time Temp Pulse Resp B/P (MAP) Pulse Ox O2 Delivery O2 Flow Rate FiO2 10/04/17 08:36 94 21 10/04/17 08:00 96.4 55 16 157/81 (106) 96 10/04/17 05:24 96.6 88 18 141/79 (99) 96 10/04/17 03:15 74 10/04/17 00:38 97.8 82 18 140/81 (100) 96 10/03/17 23:59 84 10/03/17 20:29 21 10/03/17 20:00 99.0 85 18 159/73 (101) 97 10/03/17 19:59 82 10/03/17 16:00 97.6 72 17 139/78 (98) 96 10/03/17 12:08 97 21 10/03/17 12:00 91 10/03/17 12:00 96.2 70 17 119/66 (83) 95 I/O 10/03/17 10/03/17 10/03/17 10/04/17 10/04/17 10/04/17 07:00 15:00 23:00 07:00 15:00 23:00 Intake Total 1830 ml 550 ml 1490 ml 630 ml Output Total 1003 ml 10 ml 10 ml Balance 827 ml 550 ml 1480 ml 620 ml Intake Oral 780 ml 1440 ml 580 ml IV Total 1050 ml 550 ml 50 ml 50 ml Output Urine Total 1000 ml Drainage Total 3 ml 10 ml 10 ml # Voids 8 3 # Bowel Movements 0 (Karen Nunez MD R2) Result Diagram: 10/04/1725 10/04/17524 Other Results Laboratory Tests Test 10/01/17 11:50 1/5/18 12:05 10/01/17 12:56 10/03/17 07:28 Metamyelocytes 3 % Red Cell Morphology Comment NORMAL Lactic Acid Level 1.7 mmol/L Blood Urea Nitrogen 25 MG/DL Creatinine 1.55 MG/DL Random Glucose 200 MG/DL Total Protein 7.0 GM/DL Albumin 2.7 GM/DL Calcium Level 9.1 MG/DL Alkaline Phosphatase 39 U/L Aspartate Amino Transf (AST/SGOT) 6 U/L Alanine Aminotransferase (ALT/SGPT) 16 U/L Total Bilirubin 0.5 MG/DL Sodium Level 132 MEQ/L Potassium Level 3.8 MEQ/L Chloride Level 96 MEQ/L Carbon Dioxide Level 28.2 MEQ/L Lipase 99 U/L Urine Color LIGHT-RED Urine Turbidity HAZY Urine pH 5.5 Urine Specific [place] 1.017 Urine Protein 100 mg/dL Urine Glucose (UA) NEG mg/dL Urine Ketones TRACE mg/dL Urine Occult Blood TRACE Urine Nitrite NEG Urine Bilirubin NEG Urine Urobilinogen LESS THAN 2.0 MG/DL Urine Leukocyte Esterase TRACE Urine RBC 2 /hpf Urine WBC 19 /hpf Urine Squamous Epithelial Cells 1 /hpf Urine Amorphous Sediment OCC Urine Bacteria RARE /hpf Urine Hyaline Casts 3 /lpf Urine Granular Casts 4 /lpf Urine Mucus FEW /lpf Microscopic Urinalysis Comment CULTURE INDICATED Prothrombin Time 11.0 SEC Prothromb Time International Ratio 1.1 RATIO Activated Partial Thromboplast Time 30.3 SEC Neutrophils (%) (Auto) 74.2 % Lymphocytes (%) (Auto) 9.6 % Monocytes (%) (Auto) 10.1 % Eosinophils (%) (Auto) 5.9 % Basophils (%) (Auto) 0.2 % Neutrophils # (Auto) 7.3 TH/MM3 Lymphocytes # (Auto) 0.9 TH/MM3 Monocytes # (Auto) 1.0 TH/MM3 Eosinophils # (Auto) 0.6 TH/MM3 Basophils # (Auto) 0.0 TH/MM3 CBC Comment AUTO DIFF Differential Total Cells Counted 100 Neutrophils % (Manual) 60 % Band Neutrophils % 17 % Lymphocytes % 8 % Monocytes % 7 % Eosinophils % 7 % Neutrophils # (Manual) 7.6 TH/MM3 Myelocytes 1 % Differential Comment FINAL DIFF MANUAL Toxic Granulation 1+ Platelet Estimate NORMAL Platelet Morphology Comment NORMAL Test 10/04/17 05:25 White Blood Count 8.8 TH/MM3 Red Blood Count 3.61 MIL/MM3 Hemoglobin 11.3 GM/DL Hematocrit 33.7 % Mean Corpuscular Volume 93.4 FL Mean Corpuscular Hemoglobin 31.3 PG Mean Corpuscular Hemoglobin Concent 33.5 % Red Cell Distribution Width 14.0 % Platelet Count 325 TH/MM3 Mean Platelet Volume 6.6 FL Blood Urea Nitrogen 14 MG/DL Creatinine 1.12 MG/DL Random Glucose 128 MG/DL Calcium Level 8.6 MG/DL Sodium Level 136 MEQ/L Potassium Level 3.5 MEQ/L Chloride Level 98 MEQ/L Carbon Dioxide Level 29.6 MEQ/L Anion Gap 8 MEQ/L Estimat Glomerular Filtration Rate 64 ML/MIN Imaging Last Impressions Chest X-Ray 10/01/17 1148 Signed Impressions: Service Date/Time: Sunday, October 01, 2017 12:01 - CONCLUSION: No acute disease. Jeremiah Celeste MD FACR Abdomen/Pelvis CT 10/01/17 1148 Signed Impressions: Service Date/Time: Sunday, October 01, 2017 13:10 - CONCLUSION: Marked inflammatory changes right lower quadrant with small amount of free air. No defined abscess. Considerations include both diverticulitis and appendicitis. I would favor appendicitis., Series 601 image 51 Jeremiah Celeste MD FACR Objective Remarks GENERAL: well nourished, well developed, sitting in bed initially, then transitioned to bed. winced in pain with repositioning. SKIN: No rashes, ecchymoses or lesions. Cool and dry. HEAD: Atraumatic. Normocephalic. EYES: Pupils equal round and reactive. Extraocular motions intact. No scleral icterus. No injection or drainage. ENT: Nose without bleeding, purulent drainage or septal hematoma. Airway patent. CARDIOVASCULAR: RRR no rubs, gallops, or murmurs appreciated. equal pulses bilaterally. RESPIRATORY: CTA bilaterally, breath sounds equal bilaterally. no rales, rhonchi , or wheezes heard. GASTROINTESTINAL: Abdomen soft, tender near surgical site and RLQ. s/p surgery no rebound. bowel sounds throughout. drain in place draining serosanguineous fluid MSK: no edema of bilateral lower extremities. NEUROLOGICAL: Awake and alert. grossly nonfocal. Medications and IVs Current Medications Medications (Trade) Dose Ordered Sig/Ernst Route PRN Reason Start Time Stop Time Status Last Admin Dose Admin Carvedilol (Coreg) 6.25 mg BID PO 10/01/17 21:00 10/04/17 09:00 Hydrochlorothiazide (Microzide) 12.5 mg BID PO 10/01/17 21:00 10/04/17 09:00 Lisinopril (Prinivil) 40 mg DAILY PO 10/02/17 09:00 10/04/17 09:00 Pravastatin Sodium (Pravachol) 20 mg DAILY PO 10/02/17 09:00 10/04/17 09:00 Senna/Docusate Sodium (Sheree-Colace) 1 tab BID PO 10/01/17 21:00 10/04/17 09:00 Magnesium Hydroxide (Milk Of Magnesia Liq) 30 ml Q12H PRN PO Mild constipation 10/01/17 16:15 Lactulose (Lactulose Liq) 30 ml DAILY PRN PO SEVERE CONSITIPATION 10/01/17 16:15 Insulin Detemir (Levemir Inj) 8 units Q12HR SQ 10/01/17 21:00 10/04/17 09:00 Lactated Ringer's 1,000 ml @ 30 mls/hr Q24H PRN IV SEE LABEL COMMENTS 10/01/17 16:00 10/04/17 15:59 Sodium Chloride 500 ml @ 30 mls/hr [id number] PRN IV SEE LABEL COMMENTS 10/01/17 16:00 10/04/17 15:59 Metoprolol Tartrate (Lopressor) 25 mg DIGGING MACHINE OPERATOR PRN PO SEE LABEL COMMENTS 10/01/17 16:00 10/04/17 15:59 Povidone Iodine (Betadine 5% Antisepsis Kit) 1 applic DIGGING MACHINE OPERATOR PRN EACH NARE SEE LABEL COMMENTS 10/01/17 16:00 10/04/17 15:59 Chlorhexidine Gluconate (Chlorhexidine 2% Cloth) 3 pack DIGGING MACHINE OPERATOR PRN TOPICAL SEE LABEL COMMENTS 10/01/17 16:00 10/04/17 15:59 Acetaminophen/ Hydrocodone Bitart ([place] 5-325 Mg) 1 tab Q4H PRN PO PAIN SCALE 1 TO 5 10/01/17 18:00 10/04/17 09:03 Morphine Sulfate (Morphine Inj) 2 mg Q30M PRN IV PUSH BREAKTHROUGH PAIN 6 TO 10 10/01/17 18:45 Acetaminophen/ Hydrocodone Bitart ([place] 5-325 Mg) 2 tab Q4H PRN PO PAIN SCALE 6 TO 10 10/01/17 18:00 Ondansetron HCl (Zofran Inj) 4 mg Q4H PRN IV PUSH NAUSEA OR VOMITING 10/01/17 18:00 Diphenhydramine HCl (Benadryl Inj) 25 mg Q6H PRN IVP ITCHING 10/01/17 18:00 10/03/17 17:40 Heparin Sodium (Porcine) (Heparin Inj) 5,000 units Q8H SQ 10/02/17 16:30 10/04/17 08:30 Naloxone HCl (Narcan Inj) 0.4 mg UNSCH PRN IV PUSH RESPIRATORY RATE LESS THAN 10 10/01/17 18:00 Piperacillin Sod/ Tazobactam Sod 50 ml @ 100 mls/hr Q8H IV 10/01/17 22:00 10/05/17 22:00 10/04/17 05:29 Dextrose (D50w (Vial) Inj) 50 ml UNSCH PRN IV PUSH HYPOGLYCEMIA-SEE COMMENTS 10/01/17 18:15 Glucagon (Glucagon Inj) 1 mg UNSCH PRN OTHER HYPOGLYCEMIA-SEE COMMENTS 10/01/17 18:15 Insulin Human Regular (NovoLIN R SUPPLEMENTAL SCALE) 1 ACHS SLIDING SCALE SQ 10/01/17 21:00 10/04/17 08:00 Simethicone (Mylicon Chew) 80 mg PCHS PRN CHEW GAS RETENTION 10/03/17 13:30 10/04/17 09:04 (Karen Nunez MD R2) A/P Assessment and Plan Mr. Molina is a 72 yo M who presents emergently for acute abdominal pain: Discharge Planning Most likely in the next 2-3 days. Patient needs to have a bowel movement because he is at high risk for post-op ileus. (Karen Nunez MD R2) Attending Attestation Patient seen and examined. Case reviewed and discussed with the resident team. Agree with plan of care as discussed with me and documented in the resident note. he is doing very well but needs to have a bowel movement before discharge (Светлана Tomas MD) Problem List: (1) Appendicitis with perforation ICD Codes: K35.2 - Acute appendicitis with generalized peritonitis Status: Acute Plan: CT findings showed acute appendicitis with perforation (see above) Hemodynamically stable No leukocytosis - Consulted gen surg, appreciate assistance - went to OR for emergent surgery - Zosyn 3.375 Q6H for PPx, on day 3 of treatment - NPO initially now advancing diet - Zofran for nausea - Trend CBC, BMP, replace electrolytes as needed - PO pain meds (2) DM type 2 (diabetes mellitus, type 2) ICD Codes: E11.9 - DM type 2 (diabetes mellitus, type 2) Status: Chronic Plan: BSG on admission 200 - Hold home metformin, GLP-1 modifier - Levemir 8U SQ Q12H - Novolog SSI - Accucheks AC&HS (3) Hypertension ICD Codes: I10 - Hypertension Status: Chronic Plan: Continue home HCTZ and Lisinopril (4) FEN/PPX Plan: Fluids: oral fluids Elecs: Monitor and replete PRN Nutrition: advancing DVT: SCD bilateral legs; heparin 5000mg subq Q8h Constipation protocol in place CODE STATUS: Full code (Karen Nunez MD R2) Problem Qualifiers (1) DM type 2 (diabetes mellitus, type 2): Qualified Codes: E11.8 - Type 2 diabetes mellitus with unspecified complications (2) Hypertension: Qualified Codes: I10 - Essential (primary) hypertension Karen Nunez MD R2 Oct 04, 2017 11:24 Светлана Tomas MD Oct 05, 2017 12:25
[2017-10-04] MEDS ORDERED: NORC5TAB PO (18:03)
[2017-10-04] MEDS ORDERED: AUGM875T3 PO (18:10)
[2017-10-05] VITALS (7 sets, daily range): BP systolic 122–155; BP diastolic 73–77; PULSE 69–86; RESP 18; TEMP 96.6–97.3; O2SAT 96
[2017-10-05] MEDS: PIPERACIL-TAZO 3.375 GM PREMIX 50 ML IV SCH ×2 (06:11→13:41)
[2017-10-05] MEDS: ACETAMINOPHEN/HYDROcodone 325 MG/5 MG TAB PO PRN ×2 (06:12→10:41)
[2017-10-05] MEDS: INSULIN NovoLIN REGULAR SUPPLEMENTAL SCALE SQ SCH ×2 (08:00→12:00)
[2017-10-05] MEDS: HEPARIN SODIUM - SQ 10,000 UNITS/ML VIAL SQ SCH (08:30)
--- NOTE | 2017-10-05 08:49 | HHI.FPPN ---
Subjective Remarks Mr. Molina is a 72yo M with PMHx of HTN, DM2, and Hyperlipidemia, and PE, who presented acutely with appendicitis that was treated surgically with lap appy 4 days ago. His presentation was complicated by appendix perforation for which he was given a Jefferson-Foster Drain and IV Zosyn. - Today, he has no acute issues or complaints. He slept well, his pain is controlled adequately, he is able to ambulate without assistance (he remarks that he is not unsteady on his feet), he has no issues urinating or defecating ( 4 BM's last night), and has an advanced diet. His drain was to be removed today and surgery has confirmed he can be discharged today. (Karen Nunez MD R2) Objective Vitals Vital Signs Date Time Temp Pulse Resp B/P (MAP) Pulse Ox O2 Delivery O2 Flow Rate FiO2 10/05/17 04:42 96.9 72 18 155/73 (100) 96 10/05/17 01:20 72 10/05/17 00:00 96.6 69 18 138/73 (94) 96 10/04/17 20:00 97.3 80 18 158/80 (106) 95 10/04/17 17:33 74 10/04/17 16:00 97.8 74 16 127/74 (91) 96 10/04/17 12:00 96.0 75 18 155/80 (105) 96 I/O 10/04/17 10/04/17 10/04/17 10/05/17 10/05/17 10/05/17 07:00 15:00 23:00 07:00 15:00 23:00 Intake Total 630 ml 1600 ml Output Total 10 ml 5 ml 400 ml 600 ml Balance 620 ml -5 ml 1200 ml -600 ml Intake Oral 580 ml 1600 ml IV Total 50 ml Output Urine Total 400 ml 600 ml Drainage Total 10 ml 5 ml # Voids 3 4 # Bowel Movements 2 1 (Karen Nunez MD R2) Result Diagram: 10/04/17 0525 10/04/17 0525 Other Results Laboratory Tests Test 10/05/17 09:19 White Blood Count 11.8 TH/MM3 (4.0-11.0) Red Blood Count 4.00 MIL/MM3 (4.50-5.90) Hemoglobin 12.6 GM/DL (13.0-17.0) Hematocrit 37.2 % (39.0-51.0) Mean Corpuscular Volume 93.0 FL (80.0-100.0) Mean Corpuscular Hemoglobin 31.5 PG (27.0-34.0) Mean Corpuscular Hemoglobin Concent 33.9 % (32.0-36.0) Red Cell Distribution Width 14.1 % (11.6-17.2) Platelet Count 415 TH/MM3 (150-450) Mean Platelet Volume 7.0 FL (7.0-11.0) Blood Urea Nitrogen 14 MG/DL (7-18) Creatinine 1.12 MG/DL (0.60-1.30) Random Glucose 215 MG/DL (74-106) Calcium Level 9.0 MG/DL (8.5-10.1) Sodium Level 133 MEQ/L (136-145) Potassium Level 3.6 MEQ/L (3.5-5.1) Chloride Level 96 MEQ/L (98-107) Carbon Dioxide Level 29.4 MEQ/L (21.0-32.0) Anion Gap 8 MEQ/L (5-15) Estimat Glomerular Filtration Rate 64 ML/MIN (>89) Imaging Last Impressions Chest X-Ray 10/01/17 1148 Signed Impressions: Service Date/Time: Sunday, October 01, 2017 12:01 - CONCLUSION: No acute disease. Jeremiah Celeste MD FACR Abdomen/Pelvis CT 10/01/17 1148 Signed Impressions: Service Date/Time: Sunday, October 01, 2017 13:10 - CONCLUSION: Marked inflammatory changes right lower quadrant with small amount of free air. No defined abscess. Considerations include both diverticulitis and appendicitis. I would favor appendicitis., Series 601 image 51 Jeremiah Celeste MD FACR Objective Remarks GENERAL: well nourished, well developed, sitting up in bed and moving about the room. SKIN: No rashes, ecchymoses or lesions. Cool and dry. HEAD: Atraumatic. Normocephalic. CARDIOVASCULAR: RRR no rubs, gallops, or murmurs appreciated. equal pulses bilaterally. RESPIRATORY: CTA bilaterally, breath sounds equal bilaterally. no rales, rhonchi , or wheezes heard. GASTROINTESTINAL: Abdomen soft, tender near surgical site and RLQ. s/p surgery no rebound. bowel sounds throughout. drain removed today. MSK: no edema of bilateral lower extremities. NEUROLOGICAL: Awake and alert and oriented x 4. grossly nonfocal. pleasant. Medications and IVs Current Medications Medications (Trade) Dose Ordered Sig/Ernst Route PRN Reason Start Time Stop Time Status Last Admin Dose Admin Carvedilol (Coreg) 6.25 mg BID PO 10/01/17 21:00 10/05/17 09:28 Hydrochlorothiazide (Microzide) 12.5 mg BID PO 10/01/17 21:00 10/05/17 09:28 Lisinopril (Prinivil) 40 mg DAILY PO 10/02/17 09:00 10/05/17 09:28 Pravastatin Sodium (Pravachol) 20 mg DAILY PO 10/02/17 09:00 10/05/17 09:28 Senna/Docusate Sodium (Sheree-Colace) 1 tab BID PO 10/01/17 21:00 10/04/17 09:00 Magnesium Hydroxide (Milk Of Magnesia Liq) 30 ml Q12H PRN PO Mild constipation 10/01/17 16:15 Lactulose (Lactulose Liq) 30 ml DAILY PRN PO SEVERE CONSITIPATION 10/01/17 16:15 Insulin Detemir (Levemir Inj) 8 units Q12HR SQ 10/01/17 21:00 10/05/17 09:28 Acetaminophen/ Hydrocodone Bitart ([place] 5-325 Mg) 1 tab Q4H PRN PO PAIN SCALE 1 TO 5 10/01/17 18:00 10/05/17 10:41 Morphine Sulfate (Morphine Inj) 2 mg Q30M PRN IV PUSH BREAKTHROUGH PAIN 6 TO 10 10/01/17 18:45 Acetaminophen/ Hydrocodone Bitart ([place] 5-325 Mg) 2 tab Q4H PRN PO PAIN SCALE 6 TO 10 10/01/17 18:00 Ondansetron HCl (Zofran Inj) 4 mg Q4H PRN IV PUSH NAUSEA OR VOMITING 10/01/17 18:00 Diphenhydramine HCl (Benadryl Inj) 25 mg Q6H PRN IVP ITCHING 10/01/17 18:00 10/03/17 17:40 Heparin Sodium (Porcine) (Heparin Inj) 5,000 units Q8H SQ 10/02/17 16:30 10/04/17 08:30 Naloxone HCl (Narcan Inj) 0.4 mg UNSCH PRN IV PUSH RESPIRATORY RATE LESS THAN 10 10/01/17 18:00 Piperacillin Sod/ Tazobactam Sod 50 ml @ 100 mls/hr Q8H IV 10/01/17 22:00 10/05/17 22:00 10/05/17 13:41 Dextrose (D50w (Vial) Inj) 50 ml UNSCH PRN IV PUSH HYPOGLYCEMIA-SEE COMMENTS 10/01/17 18:15 Glucagon (Glucagon Inj) 1 mg UNSCH PRN OTHER HYPOGLYCEMIA-SEE COMMENTS 10/01/17 18:15 Insulin Human Regular (NovoLIN R SUPPLEMENTAL SCALE) 1 ACHS SLIDING SCALE SQ 10/01/17 21:00 10/05/17 12:00 Simethicone (Mylicon Chew) 80 mg PCHS PRN CHEW GAS RETENTION 10/03/17 13:30 10/05/17 10:41 (Karen Nunez MD R2) Urinary Catheter: No (Karen Nunez MD R2) A/P Assessment and Plan Mr. Molina is a 72 yo M who presents emergently for acute abdominal pain: Discharge Planning Discharge home today per general surgery Seen and examined with Dr. Avila. Discussed with Dr. Tomas (Karen Nunez MD R2) Attending Attestation Patient seen and examined. Case reviewed and discussed with the resident team. Agree with plan of care as discussed with me and documented in the resident note. doing well. on all po meds and ambulating well so ready to go home (Светлана Tomas MD) Problem List: (1) Appendicitis with perforation ICD Codes: K35.2 - Acute appendicitis with generalized peritonitis Status: Acute Plan: - Pansensitive Escherichia coli and strep viridans in body fluid culture - Zosyn 3.375 Q6H for PPx, on day 4 of treatment, will transition to PO Augmentin per surgery due to pansensitive. - Tolerating diet - Zofran for nausea - Trend CBC, BMP, replace electrolytes as needed - PO pain meds - Will f/u with with surgery clinic in 1 week (2) DM type 2 (diabetes mellitus, type 2) ICD Codes: E11.9 - DM type 2 (diabetes mellitus, type 2) Status: Chronic Plan: BSG on admission 200 - Hold home metformin, GLP-1 modifier - Levemir 8U SQ Q12H - Novolog SSI - Accucheks AC&HS (3) Hypertension ICD Codes: I10 - Hypertension Status: Chronic Plan: Continue home HCTZ and Lisinopril (4) FEN/PPX Plan: Fluids: oral fluids Elecs: Monitor and replete PRN Nutrition: advancing DVT: SCD bilateral legs; heparin 5000mg subq Q8h Constipation protocol in place CODE STATUS: Full code (Karen Nunez MD R2) Problem Qualifiers (1) DM type 2 (diabetes mellitus, type 2): Qualified Codes: E11.8 - Type 2 diabetes mellitus with unspecified complications (2) Hypertension: Qualified Codes: I10 - Essential (primary) hypertension Karen Nunez MD R2 Oct 05, 2017 08:49 Светлана Tomas MD Oct 07, 2017 09:52
[2017-10-05] MEDS: DOCUSATE SODIUM 50 MG/SENNA 8.6 MG TAB PO SCH (09:00)
[2017-10-05] MEDS: CARVEDILOL 6.25 MG TAB PO SCH (09:28)
[2017-10-05] MEDS: LISINOPRIL 20 MG TAB PO SCH (09:28)
[2017-10-05] MEDS: HYDROCHLOROTHIAZIDE 12.5 MG CAP PO SCH (09:28)
[2017-10-05] MEDS: INSULIN DETEMIR 100 UNITS/ML VIAL SQ SCH (09:28)
[2017-10-05] MEDS: PRAVASTATIN SOD 20 MG TAB PO SCH (09:28)
[2017-10-05 10:06] LABS: BICARBONATE 29.4 MEQ/L (21.0-32.0); CREATININE 1.12 MG/DL (0.60-1.30)
[2017-10-05 10:11] LABS: HEMATOCRIT 37.2 % (39.0-51.0); HEMOGLOBIN 12.6 GM/DL (13.0-17.0); MEAN CORPUSCULAR HEMOGLOBIN 31.5 PG (27.0-34.0); MEAN CORPUSCULAR HGB CONC 33.9 % (32.0-36.0); PLATELET COUNT 415 TH/MM3 (150-450); RED CELL DISTRIBUTION WIDTH 14.1 % (11.6-17.2); WHITE BLOOD COUNT 11.8 TH/MM3 (4.0-11.0)
[2017-10-05] MEDS: SIMETHICONE 80 MG CHEWABLE TAB CHEW PRN (10:41)
--- NOTE | 2017-10-05 13:55 | HHI.DCPOC ---
Discharge Care Plan Goals to Promote Your Health * To prevent worsening of your condition and complications, please take medications as prescribed and follow up with your doctor in one week. * To maintain your health at the optimal level, please come back to the ED if you run a fever >101.4, you feel lightheaded, or your pain is not controlled. Directions to Meet Your Goals Take your medications as prescribed Follow your dietary instruction Follow activity as directed Keep your appointments as scheduled Take your immunizations and boosters as scheduled If your symptoms worsen call your PCP, if no PCP go to Urgent Care Center or Emergency Room Smoking is Dangerous to Your Health. Avoid second hand smoke Call the 24-hour hour crisis hotline for domestic abuse at [place] Avila MD R1 Oct 05, 2017 13:55
--- NOTE | 2017-10-05 14:35 | HHI.PR ---
Subjective Subjective Notes Resting in bed Ready to go home No issues overnight Objective Vitals/I&O Vital Signs Date Time Temp Pulse Resp B/P (MAP) Pulse Ox O2 Delivery O2 Flow Rate FiO2 10/05/17 13:39 78 10/05/17 12:00 97.3 18 140/74 (96) 96 10/04/17 08:36 21 10/01/17 18:30 Nasal Cannula 2 Labs Laboratory Tests Test 10/05/17 09:19 White Blood Count 11.8 Red Blood Count 4.00 Hemoglobin 12.6 Hematocrit 37.2 Mean Corpuscular Volume 93.0 Mean Corpuscular Hemoglobin 31.5 Mean Corpuscular Hemoglobin Concent 33.9 Red Cell Distribution Width 14.1 Platelet Count 415 Mean Platelet Volume 7.0 Blood Urea Nitrogen 14 Creatinine 1.12 Random Glucose 215 Calcium Level 9.0 Sodium Level 133 Potassium Level 3.6 Chloride Level 96 Carbon Dioxide Level 29.4 Anion Gap 8 Estimat Glomerular Filtration Rate 64 Date/Time Source Procedure Growth Status 10/01/17 16:32 Fluid Peritoneal Fluid Gram Stain - Final Complete 10/01/17 16:32 Body Fluid Culture - Final Escherichia Coli Viridans Streptococcus Grp Complete 10/01/17 12:05 Stool Stool Cryptosporidium Exam - Final NEGATIVE - NO CRYPTOSPORIDIUM ANTIGEN... Complete 10/01/17 12:05 Stool Stool Giardia Antigen (HA) - Final NEGATIVE - NO GIARDIA ANTIGEN DETECTE... Complete 10/01/17 12:05 Urine Clean Catch Urine Culture - Final <10,000 CFU/ML MIXED GRAM POSITIVE FL... Complete Radiology Last Impressions Chest X-Ray 10/01/17 1148 Signed Impressions: Service Date/Time: Sunday, October 01, 2017 12:01 - CONCLUSION: No acute disease. Jeremiah Celeste MD FACR Abdomen/Pelvis CT 10/01/17 1148 Signed Impressions: Service Date/Time: Sunday, October 01, 2017 13:10 - CONCLUSION: Marked inflammatory changes right lower quadrant with small amount of free air. No defined abscess. Considerations include both diverticulitis and appendicitis. I would favor appendicitis., Series 601 image 51 Jeremiah Celeste MD FACR Cardiovascular: Regular Lungs: Clear Abdomen: Other (lap sites c/d/i; NATHALIA now removed ) Extremities: No edema A/P Problem List: (1) Status post laparoscopic appendectomy ICD Codes: Z90.49 - Acquired absence of other specified parts of digestive tract Status: Acute (2) Appendicitis with perforation ICD Codes: K35.2 - Acute appendicitis with generalized peritonitis Status: Acute Assessment and Plan 72 year old male POD4 lap appy; perforated -Tolerating regular diet -+BM -Zosyn---transition to Augmentin -OOB and mobilize -Heparin Subq -IS -GS clear for DC -Augmentin rx on chart -Follow up Dr. Renteria on Oct 11 at 1:20PM Attending Note - Dr. Renteria Wounds OK D/C NATHALIA prior to discharge, as output minimal overnight The exam, history, and the medical decision-making described in the above note were completed with the assistance of the mid-level provider. I reviewed and agree with the findings presented. I attest that I had a [id number] encounter with the patient on the same day, and personally performed and documented my assessment and findings in the medical record. Daniela Lu Oct 05, 2017 14:35 Cali Renteria MD Oct 06, 2017 11:17
--- NOTE | 2017-10-05 16:31 | HHI.DS ---
Discharge Summary Admission Date Oct 01, 2017 at 15:03 Discharge Date: Oct 05, 2017 Admitting Diagnosis Acute appendicitis (1) Appendicitis with perforation Diagnosis: Principal ICD Codes: K35.2 - Acute appendicitis with generalized peritonitis Status: Acute (2) DM type 2 (diabetes mellitus, type 2) Diagnosis: Secondary ICD Codes: E11.9 - DM type 2 (diabetes mellitus, type 2) Status: Chronic (3) Hypertension Diagnosis: Secondary ICD Codes: I10 - Hypertension Status: Chronic Brief History History initially limited due to time (patient being rushed emergently to OR for surgery). History obtained from patient, ER physician, and chart review. Briefly, Mr. Molina is a 72 yo M with h/o DM, hyperlipidemia, hypertension, and PE in 2013 who presented to the ED with acute abdominal pain since Wednesday that has since worsened which is his main reason for presentation today. He stated that the pain is diffuse over the right side of his abdomen but is locally exquisitely tender in his RLQ. He also reports that he has R shoulder pain that appeared around the same time of his abdominal pain. He did not have any fever or vomiting, but reported some nausea immediately prior to ED arrival. Mr Molina was seen this am in his room after having his surgery yesterday. He feels fine and stood up several times already. He has no other complaints and has been drinking liquids. When asked about his prior PE, he stated that he had flown to [place] and [place] and it was provoked though he blames injury to the chest wall. He has not had other clots. CBC/BMP: 10/05/17 0919 10/05/17 0919 Significant Findings Laboratory Tests Test 10/03/17 07:28 10/04/17 05:25 10/05/17 09:19 Red Blood Count 3.48 MIL/MM3 (4.50-5.90) 3.61 MIL/MM3 (4.50-5.90) 4.00 MIL/MM3 (4.50-5.90) Hemoglobin 11.3 GM/DL (13.0-17.0) 11.3 GM/DL (13.0-17.0) 12.6 GM/DL (13.0-17.0) Hematocrit 32.6 % (39.0-51.0) 33.7 % (39.0-51.0) 37.2 % (39.0-51.0) Mean Platelet Volume 6.8 FL (7.0-11.0) 6.6 FL (7.0-11.0) Neutrophils (%) (Auto) 74.2 % (16.0-70.0) Monocytes (%) (Auto) 10.1 % (0.0-8.0) Eosinophils (%) (Auto) 5.9 % (0.0-4.0) Lymphocytes # (Auto) 0.9 TH/MM3 (1.0-4.8) Monocytes # (Auto) 1.0 TH/MM3 (0-0.9) Eosinophils # (Auto) 0.6 TH/MM3 (0-0.4) Band Neutrophils % 17 % (0-6) Lymphocytes % 8 % (9-44) Eosinophils % 7 % (0-4) Myelocytes 1 % (0-0) Toxic Granulation 1+ (NORMAL) Blood Urea Nitrogen 20 MG/DL (7-18) Random Glucose 134 MG/DL (74-106) 128 MG/DL (74-106) 215 MG/DL (74-106) Potassium Level 3.3 MEQ/L (3.5-5.1) Estimat Glomerular Filtration Rate 62 ML/MIN (>89) 64 ML/MIN (>89) 64 ML/MIN (>89) White Blood Count 11.8 TH/MM3 (4.0-11.0) Sodium Level 133 MEQ/L (136-145) Chloride Level 96 MEQ/L (98-107) PE at Discharge GENERAL: well nourished, well developed, sitting up in bed and moving about the room. SKIN: No rashes, ecchymoses or lesions. Cool and dry. HEAD: Atraumatic. Normocephalic. CARDIOVASCULAR: RRR no rubs, gallops, or murmurs appreciated. equal pulses bilaterally. RESPIRATORY: CTA bilaterally, breath sounds equal bilaterally. no rales, rhonchi , or wheezes heard. GASTROINTESTINAL: Abdomen soft, tender near surgical site and RLQ. s/p surgery no rebound. bowel sounds throughout. drain removed today. MSK: no edema of bilateral lower extremities. NEUROLOGICAL: Awake and alert and oriented x 4. grossly nonfocal. pleasant. Hospital Course Mr. Molina is a 72yo M with PMHx of HTN, DM2, and Hyperlipidemia, and PE, who presented on 10/01/2017 and was admitted for appendicitis with perforation that was treated surgically with laparoscopic appendectomy and Jefferson-Foster Drain placement. The patient was given prophylactic antibiotics (IV Zosyn) to cover against GI pathogens. He was admitted to a med/surg floor for monitoring and managing his care s/p procedure. The patient's pain was adequately managed over the course of 4 days and he tolerated oral intake and had adequate bowel movements. He was discharged with oral antibiotics, to follow-up with his surgeon in clinic within 1 week. Pt Condition on Discharge: Stable Discharge Disposition: Discharge Home Discharge Instructions DIET: Follow Instructions for: As Tolerated, No Restrictions Activities you can perform: Weight Bearing as Ashanti Activities to Avoid: Lifting/Bending, Strenuous Activity Follow up Referrals: PCP Follow-up - 1 Week PCP Follow-up Surgical - 10/11/17 with Cali Renteria MD Appt set for Oct 11 at 1:20PM Surgical New Medications: Amoxicillin-Clavulanate (Augmentin) 875-125 Mg Tab 1 TAB PO BID for Infection, #20 TAB 0 Refills Hydrocodone-Acetaminophen ([place]) 5 Mg-325 Mg Tab 1-2 TAB PO Q4H PRN for PAIN, #25 TAB 0 Refills Continued Medications: Albiglutide 4-Pack Inj (Tanzeum 4-Pack Inj) 50 Mg Pfpen 50 MG SQ Q7D, #4 PEN Carvedilol (Carvedilol) 6.25 Mg Tab 6.25 MG PO BID, #60 TAB 0 Refills Hydrochlorothiazide (Hydrochlorothiazide) 12.5 Mg Cap 12.5 MG PO BID, #60 CAP 0 Refills Insulin Glargine Inj (Lantus Inj) 1,000 Unit/10 Ml Vial 17 UNITS SQ HS for Blood Sugar Management, VIAL 0 Refills Lisinopril (Lisinopril) 40 Mg Tab 40 MG PO DAILY for Blood Pressure Management, #30 TAB 0 Refills Metformin (Metformin) 1,000 Mg Tab 1000 MG PO BIDPC for Blood Sugar Management, #60 TAB 0 Refills Simvastatin (Simvastatin) 10 Mg Tab 10 MG PO DAILY for Cholesterol Management, #30 TAB 0 Refills Discontinued Medications: Metronidazole (Flagyl) 500 Mg Tab 500 MG PO TID for Infection for 7 Days, TAB 0 Refills Karen Nunez MD R2 Oct 05, 2017 16:31
== END 2017-10-05 15:36 | disposition home or self-care (01) | DRG 340 ==
LOC: NEPC 11:12 → NEDA 15:03 → N07B 18:51
PROVIDERS: ADMIT Family Medicine; ATTEND Family Medicine
PROC: 0DTJ4ZZ Resection of Appendix, Percutaneous Endoscopic Approach (ICD-10-PCS; principal; 2017-10-01 15:43)
DX: K35.2 Acute appendicitis with generalized peritonitis (principal); E11.9 Type 2 diabetes mellitus without complications; I10 Essential (primary) hypertension; E78.5 Hyperlipidemia, unspecified; M25.511 Pain in right shoulder; M19.90 Unspecified osteoarthritis, unspecified site; Z79.4 Long term (current) use of insulin; Z86.711 Personal history of pulmonary embolism; Z87.891 Personal history of nicotine dependence; R10.31 Right lower quadrant pain; R10.11 Right upper quadrant pain; M54.9 Dorsalgia, unspecified; R94.31 Abnormal electrocardiogram [ECG] [EKG]
CPT/HCPCS: 71045; 74177; 80048; 80053; 81001; 82948; 83605; 83690; 85007; 85025; 85027; 85610; 85730; 87070; 87077; 87086; 87186; 87205; 87328; 87329; 87506; 88304; 88305; 94150; 96361; 96365; 96375; J0131; J0330; J1100; J1200; J1644; J2270; J2370; J2405; J2543; J3010; J7030; J7120; Q9967